=== PATIENT | female | born 1995 | race Caucasian/White ===

== ENCOUNTER → 2016-06-28 | Outpatient (CLI) | payer OTHER ==
--- NOTE | 2016-06-28 14:36 | US ---
EXAMINATION TYPE: US OB <= 14 wk fetus DATE OF EXAM: 06/28/2016 2:08 PM COMPARISON: NONE CLINICAL HISTORY: Z36 Confirm Dates. EXAM PERFORMED: EXAM MEASUREMENTS: GESTATIONAL AGE / DATING Physician Established: not established Dates by LMP: (13 weeks/ 5 days) EDC: 12/29/2016 Dates by First Scan: this is first scan Dates by Current Scan for: (13 weeks/1 days) EDC: 01/02/2017 MATERNAL ANATOMY Uterus: 12.4 x 9.9 x 10.1 cm Right Ovary: 2.1 x 1.4 x 1.9 cm Left Ovary: 2.5 x 1.6 x 2.9 cm Post CDS / Adnexa: wnl Presence of free fluid: none GESTATION / SURVEY CRL: 6.7cm (13 weeks/0 days) Yolk Sac (normal less than 6mm): 0.5 cm Heart Rate: 153 bpm Rhythm: Normal IUP: Viable IUP BPD: 2.0 cm 13 weeks 1 day FL : 1.1 cm 13weeks 1 day Date of LMP: 03/24/2016 TECHNOLOGIST IMPRESSION: viable IUP that correlates with LMP. IMPRESSION: Viable intrauterine gestation with a gestational age of 13 weeks 1 day +/- 7 days. Estimated date con finement based on this examination is 01/02/2017.
== END | disposition home or self-care (01) ==
LOC: RADUSWWP 13:45
PROVIDERS: ATTEND Obstetrics & Gynecology
DX: Z36 Encounter for antenatal screening of mother (principal); Z3A.13 13 weeks gestation of pregnancy
CPT/HCPCS: 76801

== ENCOUNTER → 2016-08-11 | Outpatient (CLI) | payer OTHER ==
--- NOTE | 2016-08-11 12:44 | US ---
EXAMINATION TYPE: US OB anatomy transabd DATE OF EXAM: 08/11/2016 10:16 AM COMPARISON: 06/28/2016 HISTORY: O36.62X0 Large for Dates TECHNIQUE: Transabdominal (TA) EXAM MEASUREMENTS: GESTATIONAL AGE / DATING Physician Established: (20 weeks/0 days) EDC: 12/29/2016 Dates by LMP: 20 weeks 0 days EDC: 12/29/2016 Dates by First Scan: (19 weeks/ 3 days) EDC: 01/02/2017 Dates by Current Scan for: (19 weeks/1 days) EDC: 01/04/2017 SURVEY IUP: Single PLACENTA: Anterior PREVIA: No previa TORREY: 15.8 cm Normal CERVICAL LENGTH (transabdominal: norm > 3.0cm): 3.2 cm BIOMETRY PRESENTATION: Vertex LIE: Oblique BPD: 4.5 cm 19 weeks / 4 days HC: 16.2 cm 19 weeks / 0 days AC: 14.2 cm 19 weeks / 4 days FL: 3.0 cm 19 weeks / 1 days ESTIMATED WEIGHT IN GRAMS: 289 grams ESTIMATED WEIGHT IN LBS/OZS: 0 lbs. 10 oz. WEIGHT PERCENTAGE BASED ON ESTABLISHED DATE: 16 % HC/AC: 1.1 FL/AC: 21 HEART RATE: 142 bpm RHYTHM: Normal ANATOMY SEEN (within normal limits): * Lateral Vent (< 1 cm) 0.6 cm * Cisterna Magna (< 1.1 cm) 0.4 cm * Nuchal Fold (< 0.6 cm) 0.4 cm * Cerebellum (varies with age) 1.9 cm Choroid Plexus (bilateral) Midline Falx Cavus Septi Pellucidi Four Chamber Heart Outflow tracts: LVOT/RVOT Stomach Situs Nose / Lips Diaphragm Kidneys (bilateral) Bladder Cord Insert Three Vessel Cord Longitudinal Spine Transverse Spine Arms (bilateral) Legs (bilateral) IMPRESSION: growth congruent with gestational age.
== END | disposition home or self-care (01) ==
LOC: RADUSWWP 09:21
PROVIDERS: ATTEND Obstetrics & Gynecology
DX: O36.62X0 Maternal care for excessive fetal growth, second trimester, not applicable or unspecified (principal); Z3A.19 19 weeks gestation of pregnancy
CPT/HCPCS: 76811

== ENCOUNTER 2016-09-04 03:05 | Emergency (ER) | payer OTHER ==
[2016-09-04 03:19] VITALS: TEMP 101
--- NOTE | 2016-09-04 03:55 | ED ---
General Adult HPI - General Chief complaint: Fever Stated complaint: fever, neck pain, rash Time Seen by Provider: 09/04/16 03:10 Source: patient, RN notes reviewed Mode of arrival: ambulatory Limitations: no limitations - History of Present Illness Initial comments: This is a 21-year-old female presents to the emergency department 24 weeks . Patient states she woke up today 2 hours ago thought she had a fever complains of a sore throat ear pain and some stiff neck. Patient states she is up-to-date in immunizations. Patient denies getting the flu shot this year. Patient states she took Tylenol prior to coming to the emergency department however she thought there were 200 mg a piece but she does believe they were Tylenol. Patient denies any cough or shortness of breath or chest pain. Patient denies any abdominal pain patient denies nausea vomiting diarrhea. Patient denies dysuria hematuria urinary frequency. Patient denies any vaginal bleeding or discharge. - Related Data Previous Rx's Medication Instructions Recorded Cephalexin [Keflex] 500 mg PO Q6HR #28 cap 09/04/16 Allergies Allergy/AdvReac Type Severity Reaction Status Date / Time No Known Allergies Allergy Verified 09/04/16 03:15 Review of Systems ROS Statement: Those systems with pertinent positive or pertinent negative responses have been documented in the HPI. ROS Other: All systems not noted in ROS Statement are negative. Past Medical History Past Medical History: Asthma History of Any Multi-Drug Resistant Organisms: MRSA Date of last positivie culture/infection: 09/2012 MDRO Source:: resolved/pt declines having Past Surgical History: No Surgical Hx Reported Past Anesthesia/Blood Transfusion Reactions: No Reported Reaction Past Psychological History: No Psychological Hx Reported Smoking Status: Never smoker Past Alcohol Use History: None Reported Past Drug Use History: None Reported - Past Family History Mother Family Medical History: No Reported History General Exam - General Exam Comments Initial Comments: GENERAL: Patient is well-developed and well-nourished. Patient is nontoxic and well- hydrated and is in mild distress. ENT: Neck is soft and supple. No significant lymphadenopathy is noted. Oropharynx is clear. Moist mucous membranes. Neck has full range of motion without eliciting any pain. Patient was able to call at the ceiling always straight down she said it was a little stiff but was able to look left and right and flex left and right when I looked in her ears. EYES: The sclera were anicteric and conjunctiva were pink and moist. Extraocular movements were intact and pupils were equal round and reactive to light. Eyelids were unremarkable. PULMONARY: Unlabored respirations. Good breath sounds bilaterally. No audible rales rhonchi or wheezing was noted. CARDIOVASCULAR: There is a regular rate and rhythm without any murmurs gallops or rubs. ABDOMEN: Soft and nontender with normal bowel sounds. Gravid abdomen SKIN: Skin is clear with no lesions or rashes and otherwise unremarkable. NEUROLOGIC: Patient is alert and oriented x3. Cranial nerves II through XII are grossly intact. Motor and sensory are also intact. Normal speech, volume and content. Symmetrical smile. MUSCULOSKELETAL: Normal extremities with adequate strength and full range of motion. No lower extremity swelling or edema. No calf tenderness. LYMPHATICS: No significant lymphadenopathy is noted PSYCHIATRIC: Normal psychiatric evaluation. Limitations: no limitations Course Vital Signs 09/04/16 03:12 Temperature 101 F H Pulse Rate 99 Respiratory 20 Rate Blood Pressure 124/74 O2 Sat by Pulse 93 L Oximetry Medical Decision Making - Medical Decision Making Patient was able to indicate to the bathroom and I observed her moving her neck from [id number] and up and down with out any distress - Lab Data Lab Results 09/04/16 09/04/16 09/04/16 Range/Units 03:50 03:50 03:50 Urine Color Yellow Urine Appearance Cloudy H (Clear) Urine pH 8.0 (5.0-8.0) Ur Specific [place] 1.016 (1.001-1.035) Urine Protein Trace H (Negative) Urine Glucose (UA) Trace H (Negative) Urine Ketones Negative (Negative) Urine Blood Negative (Negative) Urine Nitrite Negative (Negative) Urine Bilirubin Negative (Negative) Urine Urobilinogen <2.0 (<2.0) mg/dL Ur Leukocyte Esterase Large H (Negative) Urine RBC 3 (0-5) /hpf Urine WBC 25 H (0-5) /hpf Ur Squamous Epith Cells 10 H (0-4) /hpf Urine Bacteria Rare H (None) /hpf Urine Mucus Rare H (None) /hpf Urine Yeast (Budding) Few H (None) /hpf Influenza Type A RNA Not Detected (Not Detectd) Influenza Type B (PCR) Not Detected (Not Detectd) Group A Strep Rapid Negative (Negative) Disposition Clinical Impression: Urinary tract infection Disposition: HOME SELF-CARE Condition: Good Instructions: Urinary Tract Infection in (ED) Prescriptions: Cephalexin [Keflex] 500 mg PO Q6HR #28 cap
[2016-09-04 04:17] LABS: Appearance,Urine Cloudy (Clear); Bacteria,Urine Rare /hpf; Bilirubin,Urine Negative (Negative); Glucose,Urine (UA) Trace (Negative); Ketones,Urine Negative (Negative); Leukocyte Esterase,Urine Large (Negative); Mucus,Urine Rare /hpf; Nitrite,Urine Negative (Negative); Particle Count 26715; Protein,Urine Trace (Negative); RBC,Urine 3 /hpf (0-5); Specific Gravity,Urine 1.016 (1.001-1.035); Squamous Epithelial Cell,Urine 10 /hpf (0-4); UA Billing (MACRO vs. MICRO) MICRO; Urobilinogen,Urine <2.0 mg/dL (<2.0); WBC,Urine 25 /hpf (0-5)
[2016-09-04] MEDS ORDERED: CEPHALEXIN 500MG STARTER PACK 4 CAP BTL PO STA (04:46)
[2016-09-04] MEDS ORDERED: CEPHALEXIN 500 MG CAP PO STA (04:46)
[2016-09-04 04:58] VITALS: BP 115/58; PULSE 92; RESP 18
== END 2016-09-04 04:57 | disposition home or self-care (01) ==
LOC: EC 03:05
DX: O23.42 Unspecified infection of urinary tract in pregnancy, second trimester (principal); O99.89 Other specified diseases and conditions complicating pregnancy, childbirth and the puerperium; O99.512 Diseases of the respiratory system complicating pregnancy, second trimester; M54.2 Cervicalgia; H92.09 Otalgia, unspecified ear; J02.9 Acute pharyngitis, unspecified; Z3A.24 24 weeks gestation of pregnancy
CPT/HCPCS: 81001; 87081; 87086; 87430; 87502; 99283

== ENCOUNTER → 2016-11-08 | Outpatient (CLI) | payer SELFPAY ==
--- NOTE | 2016-11-08 12:23 | US ---
EXAMINATION TYPE: US OB anatomy transabd DATE OF EXAM: 11/08/2016 COMPARISON: HISTORY: O36.63X0 Large for Dates 3rd Trimester LGA TECHNIQUE: Transabdominal (TA) EXAM MEASUREMENTS: GESTATIONAL AGE / DATING Physician Established: (31weeks/6 days) EDC: 01/04/2017 Dates by LMP: UNKNOWN Dates by First Scan: (32WKS 1days) EDC: 01/02/2017 Dates by Current Scan for: (33weeks/5 days) EDC: 12/22/2016 SURVEY IUP: Single PLACENTA: Anterior PREVIA: No previa TORREY: 14.2CMNormal CERVICAL LENGTH (transabdominal: norm > 3.0cm): 3.2CM BIOMETRY PRESENTATION: Breech LIE: Longitudinal BPD: 8.5CM 34weeks / 3 days HC: 29.8CM 33weeks / 0 days AC: 30.8CM 34weeks / 5 days FL: 6.3cm 32wks / 5 days ESTIMATED WEIGHT IN GRAMS: 2325GRAMS ESTIMATED WEIGHT IN LBS/OZS: 5 lbs. 2 oz. WEIGHT PERCENTAGE BASED ON ESTABLISHED DATE: 95% HC/AC: 0.97Normal FL/AC: 20.59NORMAL HEART RATE: 144 RHYTHM: Normal ANATOMY SEEN (within normal limits): Four Chamber Heart Stomach Situs Diaphragm Kidneys (bilateral) Bladder Longitudinal Spine Transverse Spine ANATOMY NOT SEEN: DUE TO AGE AND POSITION * Lateral Vent (< 1 cm) cm * Cisterna Magna (< 1.1 cm) cm * Nuchal Fold (< 0.6 cm) cm * Cerebellum (varies with age) cm Choroid Plexus (bilateral) Midline Falx Cavus Septi Pellucidi Outflow tracts: LVOT/RVOT Nose / Lips Cord Insert Arms (bilateral) Legs (bilateral) Three Vessel Cord IMPRESSION: SINGLE VIABLE IUP 33WKS 5 DAYS WITH VAN OF 12/22/2016
== END | disposition home or self-care (01) ==
LOC: RADUSWWP 11:02
PROVIDERS: ATTEND Obstetrics & Gynecology
DX: O36.63X0 Maternal care for excessive fetal growth, third trimester, not applicable or unspecified (principal); Z3A.33 33 weeks gestation of pregnancy
CPT/HCPCS: 76805

== ENCOUNTER → 2016-11-22 | Outpatient (CLI) | payer SELFPAY ==
[2016-11-22 13:38] LABS: CH 27.1; CHCM 33.2; HCT 30.6 % (34.0-46.0); HDW 3.59; HGB 10.3 gm/dL (11.4-16.0); Hypochromasia Slight; MCH 27.6 pg (25.0-35.0); MCHC 33.7 g/dL (31.0-37.0); MCV 81.9 fL (80.0-100.0); Mean Platelet Volume 9.1; Poikilocytosis Slight; RBC 3.74 m/uL (3.80-5.40); RDW 13.2 % (11.5-15.5); WBC 9.5 k/uL (3.8-10.6)
[2016-11-22 14:05] LABS: Non-African American GFR(MDRD) >60 (>60 ml/min/1.73 sqM)
[2016-11-22 14:31] LABS: Hepatitis B Surface Ag Index 0.05
[2016-11-22 18:59] LABS: Treponemal Ab Non-Reactive (Non-Reactive)
[2016-11-23 05:54] LABS: Toxoplasma Antibody (IgG) <3.0 IU/mL (<7.2)
== END | disposition home or self-care (01) ==
LOC: LABWHC1 12:06
PROVIDERS: ATTEND Obstetrics & Gynecology
DX: Z34.82 Encounter for supervision of other normal pregnancy, second trimester (principal); R53.83 Other fatigue
CPT/HCPCS: 36415; 82565; 82950; 85027; 86762; 86777; 86778; 86780; 86850; 86900; 86901; 87340; 87390

== ENCOUNTER → 2016-11-29 | Outpatient (CLI) | payer SELFPAY ==
[2016-11-29 13:33] LABS: Glucose 3 Hour, Gest 77 mg/dL
== END | disposition home or self-care (01) ==
LOC: LABWHC1 08:29
PROVIDERS: ATTEND Obstetrics & Gynecology
DX: O99.810 Abnormal glucose complicating pregnancy (principal); Z3A.00 Weeks of gestation of pregnancy not specified
CPT/HCPCS: 36415; 82951; 82952

== ENCOUNTER → 2016-12-07 | Outpatient (CLI) | payer SELFPAY ==
--- NOTE | 2016-12-07 15:04 | US ---
EXAMINATION TYPE: US OB >= 14 wk fetus DATE OF EXAM: 12/07/2016 COMPARISON: 11/08/2016 CLINICAL HISTORY: 21-year-old female O36.63X0 LARGE FOR DATES,O32.1XX0 BREECH. Check growth and posit ion. TECHNIQUE: Transabdominal (TA) FINDINGS: GESTATIONAL AGE / DATING Physician Established: (36 weeks/0 days) EDC: 01/04/2017 Dates by Current Scan: (36 weeks/0 days) EDC: 01/04/2017 11/08/2016 ultrasound EDC: 12/22/2016. SURVEY IUP: Single PLACENTA: Anterior PREVIA: No Previa TORREY: 16.7 cm Normal CERVICAL LENGTH (transabdominal: norm > 3.0cm): 3.0 cm BIOMETRY PRESENTATION: Vertex BPD: 8.9 cm 36 weeks / 0 days HC: 31.9 cm 36 weeks / 0 days AC: 34.6 cm 38 weeks / 4 days FL: 7.0 cm 35 weeks / 6 days ESTIMATED WEIGHT IN GRAMS: 3174 grams ESTIMATED WEIGHT IN LBS/OZS: 7 lbs. 0 oz. WEIGHT PERCENTAGE BASED ON ESTABLISHED DATES: 84.3% (versus 95.0% on 11/08/2016) HC/AC: 0.92 (0.93-1.08) FL/AC: 20.2 Normal HEART RATE: 144 bpm RHYTHM: Normal Live single IUP measuring 36 weeks 0 days IMPRESSION: 1. Single live intrauterine with established gestational age of 36 weeks 0 days. Current ul trasound biometry is now exactly concordant placing the child at the 84th percentile for weight (vers us 95% on 11/08/2016). 2. If measurements were accurate on 11/08/2016, there has been 1 weeks 6 days less growth than would b e expected from that time. Continued follow-up recommended especially given slightly low HC/AC ratio now with a disproportionately larger abdominal circumference.
== END | disposition home or self-care (01) ==
LOC: RADUSWWP 10:44
PROVIDERS: ATTEND Obstetrics & Gynecology
DX: O36.63X0 Maternal care for excessive fetal growth, third trimester, not applicable or unspecified (principal); O32.1XX0 Maternal care for breech presentation, not applicable or unspecified; Z3A.36 36 weeks gestation of pregnancy
CPT/HCPCS: 76805

== ENCOUNTER 2016-12-16 13:54 | Outpatient (CLI) | payer SELFPAY ==
[2016-12-16 14:18] VITALS: BP 100/59; PULSE 101; RESP 16; TEMP 96.8
--- NOTE | 2016-12-17 12:06 | P.MSEPDOC ---
Presenting Problems - Arrival Data Date of Arrival on Unit: 12/16/16 Time of Arrival on Unit: 13:54 Mode of Transport: Wheelchair - Complaint OB-Reason for Admission/Chief Complaint: Possible Onset of Labor Medical History - Information : 3 Para: 2 Term: 2 : 0 Abortions: Spontaneous or Elective: 0 Number of Living Children: 2 - Gestational Age Expected Date of Delivery: 01/04/17 Gestational Age by VAN (wks/days): 37 Weeks and 3 Days Review of Systems - Review of Systems Constitutional: No problems Breast: No problems ENT: No problems Cardiovascular: No problems Respiratory: No problems Gastrointestinal: No problems Genitourinary: No problems Musculoskeletal: No problems Neurological: No problems Skin: No problems Vital Signs - Temperature Temperature: 96.8 F Temperature Source: Temporal Artery Scan - Pulse Right Brachial Pulse Rate: 101 Pulse Assessment Method: Automatic Cuff - Respirations Respiratory Rate: 16 Oxygen Delivery Method: Room Air O2 Sat by Pulse Oximetry: 98 - Blood Pressure Right Arm Blood Pressure: 100/59 Blood Pressure Mean: 72 Blood Pressure Source: Automatic Cuff Medical Screen Scoring (Pre) - Cervical Exam Dilation: 1-3 cm = 1 Membranes: Intact - Uterine Contractions Frequency: > 5 minutes apart = 1 Duration: > 40 seconds = 2 Intensity: N/A - Maternal Vital Signs Maternal Temperature: N/A Maternal Blood Pressure: N/A Signs of Preeclampsia: N/A Maternal Respirations: N/A - Maternal Trauma Maternal Trauma: N/A - Assessment Baseline FHR: 125 Heart Rate - NICHD Category: Category I (Normal) = 0 NST: Reactive Position: N/A Station: N/A - Total Score Total Score (Pre): 4 - Level of Risk Level of Risk: Low (0-5) Physician Notification (Pre) - Physician Notified Physician Notified Date: 12/16/16 Physician Notified Time: 15:23 Physician/Practitioner Notifed:: dr santiago Spoke With: dr santiago New Order Received: Yes (ks home) Disposition - Disposition OB Disposition: Discharge to home, Written follow up instructions reviewed Discharge Date: 12/16/16 Discharge Time: 15:30 I agree with the RN Medical Screening Exam: Yes Risk & Benefit of care provided described in d/c instruction: Yes Diagnosis: FALSE LABOR AT OR AFTER 37 COMPLETED WEEKS OF GESTATION
== END 2016-12-16 15:31 | disposition home or self-care (01) ==
LOC: FBPOP 13:54
PROVIDERS: ATTEND Obstetrics & Gynecology
DX: O47.1 False labor at or after 37 completed weeks of gestation (principal); Z3A.37 37 weeks gestation of pregnancy
CPT/HCPCS: 59025; 99213

== ENCOUNTER 2016-12-31 06:00 | Inpatient (IN) | payer OTHER ==
[2016-12-31] MEDS ORDERED: CARBOPROST TROMETHAMINE 250 MCG/ML 1 ML AMP IM PRN (06:36)
[2016-12-31] MEDS ORDERED: OXYTOCIN 10 UNIT/ML 1 ML VIAL IM PRN (06:36)
[2016-12-31] MEDS ORDERED: TERBUTALINE 1 MG/ML VIAL SQ PRN (06:36)
[2016-12-31] MEDS ORDERED: METHYLERGONOVINE 0.2 MG/ML 1 ML AMP IM PRN (06:36)
[2016-12-31] MEDS ORDERED: LIDOCAINE 1% (PF) 10 MG/ML (30 ML SDV) SQ PRN (06:36)
[2016-12-31] MEDS ORDERED: OXYTOCIN 20 UNITS/1000 ML NS 1,000 ML IV SCH (06:45)
[2016-12-31] MEDS: LACTATED RINGERS 1,000 ML IV SCH ×2 (06:48→11:10)
[2016-12-31 06:52] LABS: Basophils # (A) 0.1 k/uL (0-0.2); Basophils % (A) 1 %; CH 24.7; CHCM 32.4; Eosinophils # (A) 0.2 k/uL (0-0.7); Eosinophils % (A) 2 %; HCT 32.3 % (34.0-46.0); HDW 3.76; HGB 10.2 gm/dL (11.4-16.0); Hypochromasia Moderate; Luc # (Auto) 0.19; Luc % (Auto) 2; Lymphocytes # (A) 1.7 k/uL (1.0-4.8); Lymphocytes % (A) 17 %; MCH 24.2 pg (25.0-35.0); MCHC 31.7 g/dL (31.0-37.0); Mean Platelet Volume 8.6; Microcytosis Slight; Monocytes # (A) 0.5 k/uL (0-1.0); Monocytes % (A) 5 %; Neutrophils # (A) 7.3 k/uL (1.3-7.7); Neutrophils % (A) 74 %; Poikilocytosis Slight; RBC 4.23 m/uL (3.80-5.40); RDW 14.8 % (11.5-15.5); WBC 9.9 k/uL (3.8-10.6); WBC (Perox) 10.13
[2016-12-31 06:55] LABS: MCV 76.5 fL (80.0-100.0)
[2016-12-31 07:20] VITALS: BMI 31.7
[2016-12-31] MEDS ORDERED: BUTORPHANOL 1 MG/ML 1 ML VIAL IV PRN (08:50)
[2016-12-31] MEDS ORDERED: fentaNYL (PF) 50 MCG/ML 5 ML AMP ONE (10:53)
[2016-12-31] MEDS ORDERED: SODIUM CHLORIDE 0.9% 100 ML BAG ONE (10:53)
[2016-12-31] MEDS ORDERED: BUPIVACAINE (PF) 0.25% 30 ML VIAL ONE (10:53)
[2016-12-31] MEDS ORDERED: BUPIVACAINE (PF) 0.25% 25 ML, fentaNYL (PF) 200 MCG in SODIUM CHLORIDE 0.9% 71 ML EPIDURAL ONE (11:05)
[2016-12-31] MEDS ORDERED: HYDROCORTISONE 2.5% RECTAL CREAM 30 GM TUBE RECTAL PRN (13:16)
[2016-12-31] MEDS ORDERED: Acetaminophen-Codeine 300-30mg TAB PO PRN ×2 (13:16)
[2016-12-31] MEDS ORDERED: WITCH HAZEL 1 EACH MED..PAD TOPICAL PRN (13:16)
[2016-12-31] MEDS ORDERED: SIMETHICONE 80 MG CHEWABLE PO PRN (13:16)
[2016-12-31] MEDS ORDERED: diphenhydrAMINE 25 MG CAP PO PRN (13:16)
[2016-12-31] MEDS ORDERED: ACETAMINOPHEN TAB 325 MG TAB PO PRN (13:16)
[2016-12-31] MEDS ORDERED: LANOLIN CREAM 5 GM TUBE TOPICAL PRN (13:16)
[2016-12-31] MEDS ORDERED: ZOLPIDEM 5 MG TAB PO PRN (13:16)
[2016-12-31] MEDS ORDERED: diphenhydrAMINE 50 MG CAP PO PRN (13:16)
[2016-12-31] MEDS ORDERED: diphenhydrAMINE 50 MG/ML 1 ML VIAL IVP PRN ×2 (13:16)
[2016-12-31] MEDS ORDERED: BENZOCAINE/MENTHOL SPRAY 1 GM/SPRAY AEROSOL TOPICAL PRN (13:16)
[2016-12-31] MEDS ORDERED: IBUPROFEN 600 MG TAB PO PRN (13:16)
--- NOTE | 2016-12-31 13:20 | P.HPOB ---
History of Present Illness H&P Date: 12/31/16 Chief Complaint: D&C at term: Induction of labor Jerry is a 21-year-old at 39-3/7 weeks gestation who arrives for induction of labor. Her course has been unremarkable and she is feeling well at this time. At presentation she was dilated to ears and artificial rupture membranes has been performed and clear fluid is noted. Pertinent labs did include A+ blood type Rh and blood was negative, rubella nonimmune, hepatitis B surface antigen and group B strep were both negative. On physical exam vital signs are stable and afebrile. Heart regular, lungs clear, extremities without pain. Abdomen soft and nontender gravid uterus is noted. heart tones were in the 130s and reactive. Assessment intrauterine at term. Plan expect spontaneous vaginal delivery she plans to use an epidural for analgesia Past Medical History Past Medical History: Asthma History of Any Multi-Drug Resistant Organisms: MRSA Date of last positivie culture/infection: 09/2012/left shoulder MDRO Source:: resolved/pt declines having/ Past Surgical History: No Surgical Hx Reported Additional Past Surgical History / Comment(s): pt states she had her gallbladder removed 2014 Past Anesthesia/Blood Transfusion Reactions: No Reported Reaction Past Psychological History: No Psychological Hx Reported Smoking Status: Never smoker Past Alcohol Use History: None Reported Past Drug Use History: None Reported - Past Family History Mother Family Medical History: No Reported History Medications and Allergies Home Medications Medication Instructions Recorded Confirmed Type No Known Home Medications [No 12/16/16 12/31/16 History Known Home Medications] Allergies Allergy/AdvReac Type Severity Reaction Status Date / Time No Known Allergies Allergy Verified 12/31/16 06:35 Exam Osteopathic Statement: *. No significant issues noted on an osteopathic structural exam other than those noted in the History and Physical/Consult. - Vital Signs Vital signs: Vital Signs Temp Pulse Resp BP 12/31/16 13:01 98.2 F 90 16 108/64 12/31/16 12:46 77 20 109/64 12/31/16 12:30 80 16 109/57 12/31/16 12:16 77 16 116/61 12/31/16 12:01 76 20 120/58 12/31/16 06:34 98.6 F 82 18 124/63 Intake and Output 12/30/16 12/31/16 12/31/16 22:59 06:59 14:59 Other: Weight 83.915 kg Results Result Diagrams: 12/31/16 06:35 Abnormal Lab Results - Last 24 Hours (Table) 12/31/16 Range/Units 06:35 Hgb 10.2 L (11.4-16.0) gm/dL Hct 32.3 L (34.0-46.0) % MCV 76.5 L D (80.0-100.0) fL MCH 24.2 L (25.0-35.0) pg
--- NOTE | 2016-12-31 13:21 | P.PROBDLV ---
Vaginal Delivery Note - . Vaginal Delivery Note: Rest complete and pushing with spontaneous vaginal delivery of a viable female over intact perineum. Following delivery of the head anterior shoulder was delivered with gentle downward traction followed by the posterior shoulder with gentle upward traction mouth nares were then bulb suctioned and baby was placed on mother's abdomen where the umbilical cord was allowed to pulsate for 30 seconds and then clamped cut usual fashion. Placenta was then delivered intact and Pitocin was added to the IV. scores were 9 and 9 at one and 5 minutes respectively and the weight was 9 lbs. 2 oz. Both mother and baby are stable following delivery.
[2016-12-31] MEDS: SENNOSIDES-DOCUSATE SODIUM 1 EACH TAB PO SCH (20:00)
[2016-12-31] MEDS ORDERED: MEASLES-MUMPS-RUBELLA VACC/PF 12,500 UNIT/0.5 ML VIAL SQ ONE (23:48)
[2017-01-01 00:07] VITALS: RESP 16
[2017-01-01 08:09] VITALS: BP 112/72; PULSE 84; TEMP 98.2
--- NOTE | 2017-01-01 09:16 | P.DS ---
Providers Date of admission: 12/31/16 06:23 Expected date of discharge: 01/01/17 Attending physician: Baljit Baker Primary care physician: Stated None Hospital Course: Patient is seen and evaluated day 1. She is involuting, voiding, and she is tolerating her diet. She voices no complaint. Vital signs are stable and afebrile. Heart regular, lungs clear, extremities without pain. Assessment day 1. Plan discharged home follow up with me in 6 weeks. All questions are answered for her at this time and she is stable for discharge at this time. Patient Condition at Discharge: Good Plan - Discharge Summary New Discharge Prescriptions: No Action No Known Home Medications [No Known Home Medications] Discharge Medication List No Known Home Medications [No Known Home Medications] 12/16/16 [History] Follow up Appointment(s)/Referral(s): Baljit Baker DO [Doctor of Osteopathic Medicine] - 1 Week Activity/Diet/Wound Care/Special Instructions: No heavy lifting, limit stairs and driving, and pelvic rest. If any high temperatures, heavy bleeding, or severe pain call my office Discharge Disposition: HOME SELF-CARE
[2017-01-01] MEDS: SENNOSIDES-DOCUSATE SODIUM 1 EACH TAB PO SCH (10:12)
== END 2017-01-01 12:30 | disposition home or self-care (01) | DRG 775 ==
LOC: 4FBP 06:23
PROVIDERS: ADMIT Obstetrics & Gynecology; ATTEND Obstetrics & Gynecology
PROC: 10E0XZZ Delivery of Products of Conception, External Approach (ICD-10-PCS; principal; 2016-12-31)
PROC: 10907ZC Drainage of Amniotic Fluid, Therapeutic from Products of Conception, Via Natural or Artificial Opening (ICD-10-PCS; 2016-12-31)
PROC: 3E033VJ Introduction of Other Hormone into Peripheral Vein, Percutaneous Approach (ICD-10-PCS; 2016-12-31)
PROC: 3E0S3NZ Introduction of Analgesics, Hypnotics, Sedatives into Epidural Space, Percutaneous Approach (ICD-10-PCS; 2016-12-31)
PROC: 3E0134Z Introduction of Serum, Toxoid and Vaccine into Subcutaneous Tissue, Percutaneous Approach (ICD-10-PCS; 2017-01-01)
DX: O80 Encounter for full-term uncomplicated delivery (principal); Z23 Encounter for immunization; Z37.0 Single live birth; Z3A.39 39 weeks gestation of pregnancy; Z90.49 Acquired absence of other specified parts of digestive tract; Z86.14 Personal history of Methicillin resistant Staphylococcus aureus infection; Z87.09 Personal history of other diseases of the respiratory system
CPT/HCPCS: 85025; 88307; 90471; 90707

== ENCOUNTER 2017-02-13 00:46 | Emergency (ER) | payer OTHER ==
[2017-02-13 01:26] LABS: Anisocytosis Moderate; Basophils % (A) 0 %; CH 25.8; CHCM 32.4; Eosinophils # (A) 0.4 k/uL (0-0.7); Eosinophils % (A) 5 %; HCT 39.5 % (34.0-46.0); HDW 2.77; HGB 12.6 gm/dL (11.4-16.0); Luc # (Auto) 0.16; Luc % (Auto) 2; Lymphocytes # (A) 2.7 k/uL (1.0-4.8); Lymphocytes % (A) 33 %; MCH 25.4 pg (25.0-35.0); MCHC 31.9 g/dL (31.0-37.0); MCV 79.6 fL (80.0-100.0); Mean Platelet Volume 8.3; Microcytosis Slight; Monocytes # (A) 0.5 k/uL (0-1.0); Monocytes % (A) 6 %; Neutrophils # (A) 4.3 k/uL (1.3-7.7); Neutrophils % (A) 53 %; RBC 4.96 m/uL (3.80-5.40); RDW 20.8 % (11.5-15.5); WBC 8.1 k/uL (3.8-10.6); WBC (Perox) 8.23
--- NOTE | 2017-02-13 01:26 | ED ---
Chest Pain HPI - General Chief Complaint: Chest Pain Stated Complaint: chest pain Time Seen by Provider: 02/13/17 01:01 Source: patient Mode of arrival: wheelchair Limitations: no limitations - History of Present Illness Initial Comments: This patient is 21-year-old woman who comes in to be evaluated for intermittent chest pains. Patient states that he's been going on since she had delivered her child in the middle of December. The patient states that she had a normal spontaneous, uncomplicated vaginal delivery. She indicates that the pain is in the substernal area. She states that it tends to come on for couple of hours when it does come. It was severe but now has partially resolved and now is about 4 out of 10. She states that it does feel like it goes towards both sides of her chest. She describes as aching. She has not noted any worsening or relieving factors. When questioned about associated symptoms she does note that she has had a nonproductive cough but that this is been going on since before the pains had started. Patient doesn't have any other associated symptoms. Patient denies vomiting, change in bowel movements, change in urination, leg pain or swelling, history of previous DVT/PE or family history. MD Complaint: chest pain -: week(s) Onset: during rest Pain Location: substernal Pain Radiation: other (Sides) Severity: severe Quality: aching Consistency: other (Partially resolved) Improves With: nothing Worsens With: nothing Other Symptoms: cough Treatments Prior to Arrival: none - Related Data Previous Rx's Medication Instructions Recorded predniSONE 60 mg PO DAILY #30 tab 02/13/17 Allergies Allergy/AdvReac Type Severity Reaction Status Date / Time No Known Allergies Allergy Verified 02/13/17 00:58 Review of Systems ROS Statement: Those systems with pertinent positive or pertinent negative responses have been documented in the HPI. ROS Other: All systems not noted in ROS Statement are negative. Constitutional: Denies: fever, chills Respiratory: Reports: cough. Denies: dyspnea, wheezes, hemoptysis Cardiovascular: Reports: chest pain. Denies: palpitations, orthopnea, edema, syncope Gastrointestinal: Denies: abdominal pain, nausea, vomiting, diarrhea, melena, hematochezia Genitourinary: Denies: dysuria, hematuria Musculoskeletal: Denies: back pain Skin: Denies: rash Neurological: Denies: headache, weakness, numbness EKG Findings - EKG Results: EKG: interpreted by CHERRY, sinus rhythm (Rate approximate 71 bpm), normal axis, normal QRS - Blocks, [place], Hypertrophy, ST Abn: Chamber hypertrophy or enlargement: only voltage criteria for left ventricular hypertrophy Past Medical History Past Medical History: Asthma History of Any Multi-Drug Resistant Organisms: MRSA Date of last positivie culture/infection: 09/2012/left shoulder MDRO Source:: resolved/pt declines having/ Past Surgical History: No Surgical Hx Reported Additional Past Surgical History / Comment(s): pt states she had her gallbladder removed 2014 Past Anesthesia/Blood Transfusion Reactions: No Reported Reaction Past Psychological History: No Psychological Hx Reported Smoking Status: Never smoker Past Alcohol Use History: None Reported Past Drug Use History: None Reported - Past Family History Mother Family Medical History: No Reported History General Exam Limitations: no limitations General appearance: alert, in no apparent distress, other (Frequent nonproductive cough) Head exam: Present: atraumatic, normocephalic Eye exam: Present: normal appearance. Absent: scleral icterus, conjunctival injection ENT exam: Present: normal oropharynx, mucous membranes moist Respiratory exam: Present: normal lung sounds bilaterally. Absent: respiratory distress, wheezes, rales, rhonchi, stridor, chest wall tenderness Cardiovascular Exam: Present: regular rate, normal rhythm, normal heart sounds. Absent: systolic murmur, diastolic murmur, rubs, gallop GI/Abdominal exam: Present: soft. Absent: distended, tenderness, guarding, rebound, mass Extremities exam: Present: normal inspection, normal capillary refill. Absent: pedal edema, calf tenderness Back exam: Present: normal inspection. Absent: CVA tenderness (R), CVA tenderness (L) Neurological exam: Present: alert Skin exam: Present: warm, dry, intact, normal color. Absent: rash Course Vital Signs 02/13/17 02/13/17 00:48 01:23 Temperature 97.7 F Pulse Rate 77 75 Respiratory 16 18 Rate Blood Pressure 135/62 111/68 O2 Sat by Pulse 98 99 Oximetry Disposition Clinical Impression: Bronchitis Disposition: HOME SELF-CARE Condition: Good Instructions: Acute Bronchitis (ED) Prescriptions: predniSONE 60 mg PO DAILY #30 tab Referrals: Nonstaff,Physician [REFERRING] - 1-2 days
[2017-02-13 01:34] LABS: ALT 32 U/L (9-52); AST 18 U/L (14-36); Alkaline Phosphatase 88 U/L (38-126); Anion Gap 13 mmol/L; Blood Urea Nitrogen 19 mg/dL (7-17); Calcium 9.5 mg/dL (8.4-10.2); Carbon Dioxide 19 mmol/L (22-30); Chloride 108 mmol/L (98-107); Glucose 102 mg/dL (74-99); Non-African American GFR(MDRD) >60 (>60 ml/min/1.73 sqM); Potassium 4.3 mmol/L (3.5-5.1); Sodium 140 mmol/L (137-145); Total Bilirubin 1.2 mg/dL (0.2-1.3); Total Protein 7.5 g/dL (6.3-8.2)
[2017-02-13 01:45] LABS: Creatine Kinase 54 U/L (30-135)
[2017-02-13 01:58] LABS: Creatine Kinase MB <0.2 ng/mL (0.0-2.4); Troponin I <0.012 ng/mL (0.000-0.034)
--- NOTE | 2017-02-13 01:58 | XR ---
EXAM: XR Chest, 1 View CLINICAL HISTORY: Reason: chest pain TECHNIQUE: Frontal view of the chest. COMPARISON: No relevant prior studies available. FINDINGS: Lungs: Mild perihilar opacities. No consolidation. Pleural space: Unremarkable. No pneumothorax. Heart: Unremarkable. Mediastinum: Unremarkable. Bones/joints: Unremarkable. IMPRESSION: Mild perihilar opacities. No consolidation.
[2017-02-13] MEDS ORDERED: predniSONE 20 MG TAB PO STA (03:36)
[2017-02-13 03:48] VITALS: BP 154/67; PULSE 70; RESP 16; TEMP 97.5
== END 2017-02-13 03:47 | disposition home or self-care (01) ==
LOC: EC 00:46
DX: J40 Bronchitis, not specified as acute or chronic (principal); R07.89 Other chest pain
CPT/HCPCS: 99285 ×2; 36415; 93005; 85379; 80053; 82550; 82553; 84484; 85025; 71010; J7512

== ENCOUNTER 2018-01-17 22:19 | Emergency (ER) | payer OTHER ==
[2018-01-17 22:29] VITALS: RESP 18
[2018-01-17] MEDS ORDERED: ONDANSETRON 4 MG/2 ML VIAL IVP STA (23:36)
[2018-01-17] MEDS ORDERED: SODIUM CHLORIDE 0.9% 1,000 ML IV STA (23:36)
[2018-01-17] MEDS ORDERED: KETOROLAC 30 MG/ML 1 ML VIAL IVP STA (23:36)
--- NOTE | 2018-01-17 23:39 | ED ---
Abdominal Pain HPI - General Chief Complaint: Abdominal Pain Stated Complaint: poss kidney stones Time Seen by Provider: 01/17/18 23:21 Source: patient Mode of arrival: ambulatory Limitations: no limitations - History of Present Illness Initial Comments: 22-year-old female patient presents to the emergency department today for evaluation of left flank pain. Patient states that she's been having pain on and off for the last 3 days. Patient states that the pain has been present for the last few hours. States it is very sharp and feels orthopedics was punching her in the back. Patient states she is also having some dull achy pain in the right flank. Patient states she did have some hematuria couple days ago. Patient was seen and evaluated at urgent care today and told she possibly has a kidney stone. Patient states her last period was one month ago, her periods are irregular, she is unsure she may be . She denies any nausea, vomiting, constipation, or diarrhea. She denies any dysuria, urinary frequency , urinary urgency. She is having some suprapubic cramping with this. Patient denies any recent rash, shortness breath, chest pain, numbness, tingling, dizziness, weakness, headache, visual changes, or any other complaints. - Related Data Home Medications Medication Instructions Recorded Confirmed No Known Home Medications 01/17/18 01/17/18 Allergies Allergy/AdvReac Type Severity Reaction Status Date / Time No Known Allergies Allergy Verified 01/17/18 23:22 Review of Systems ROS Statement: Those systems with pertinent positive or pertinent negative responses have been documented in the HPI. ROS Other: All systems not noted in ROS Statement are negative. Past Medical History Past Medical History: Asthma History of Any Multi-Drug Resistant Organisms: MRSA Date of last positivie culture/infection: 09/2012/left shoulder MDRO Source:: resolved/pt declines having/ Past Surgical History: Cholecystectomy Additional Past Surgical History / Comment(s): pt states she had her gallbladder removed 2014 Past Anesthesia/Blood Transfusion Reactions: No Reported Reaction Past Psychological History: No Psychological Hx Reported Smoking Status: Never smoker Past Alcohol Use History: None Reported Past Drug Use History: None Reported - Past Family History Mother Family Medical History: No Reported History General Exam Limitations: no limitations General appearance: alert, in no apparent distress, other (This is a well- developed, well-nourished adult female patient in no acute distress. Vital signs upon presentation are temperature 98.2F, pulse 69, respirations 18, blood pressure 106/66, pulse ox 95% on room air.) Eye exam: Present: normal appearance, PERRL, EOMI. Absent: scleral icterus, conjunctival injection, periorbital swelling ENT exam: Present: normal exam, normal oropharynx, mucous membranes moist Respiratory exam: Present: normal lung sounds bilaterally. Absent: respiratory distress, wheezes, rales, rhonchi, stridor Cardiovascular Exam: Present: regular rate, normal rhythm, normal heart sounds. Absent: systolic murmur, diastolic murmur, rubs, gallop, clicks GI/Abdominal exam: Present: soft, tenderness (Suprapubic tenderness), normal bowel sounds. Absent: distended, guarding, rebound, rigid Back exam: Present: normal inspection, CVA tenderness (R), CVA tenderness (L) Neurological exam: Present: alert, oriented X3, CN II-XII intact Psychiatric exam: Present: normal affect, normal mood Skin exam: Present: warm, dry, intact, normal color. Absent: rash Course Vital Signs 01/17/18 22:27 Temperature 98.3 F Pulse Rate 69 Respiratory 18 Rate Blood Pressure 106/66 O2 Sat by Pulse 95 Oximetry Medical Decision Making - Medical Decision Making 22-year-old female patient percents emergency department today for evaluation of bilateral flank pain. Patient is also complaining of some suprapubic cramping. Physical examination did reveal suprapubic tenderness and bilateral CVA tenderness. Labs reviewed and were unremarkable. Urinalysis did show cloudy appearance with 1+ protein, positive nitrite, pulse 1+ bilirubin, moderate leukocyte esterase, 32 white blood cells, 11 squamous epithelial cells , rare amorphous sediment, rare bacteria, many mucus. HCG was negative. We'll treat patient for pyelonephritis. She was seen at urgent care earlier and given a prescription for Bactrim. We'll give her IV Rocephin here in the department and she is instructed to complete that prescription. She is instructed to follow-up with her primary care physician for recheck in 1-2 days. Return parameters discussed in detail. She verbalizes understanding and agrees with this plan. - Lab Data Result diagrams: 01/18/18 00:31 01/18/18 00:31 Lab Results 01/18/18 01/18/1818 Range/Units 00:27 00:27 00:31 WBC (3.8-10.6) k/uL RBC (3.80-5.40) m/uL Hgb (11.4-16.0) gm/dL Hct (34.0-46.0) % MCV (80.0-100.0) fL MCH (25.0-35.0) pg MCHC (31.0-37.0) g/dL RDW (11.5-15.5) % Plt Count (150-450) k/uL Neutrophils % % Lymphocytes % % Monocytes % % Eosinophils % % Basophils % % Neutrophils # (1.3-7.7) k/uL Lymphocytes # (1.0-4.8) k/uL Monocytes # (0-1.0) k/uL Eosinophils # (0-0.7) k/uL Basophils # (0-0.2) k/uL Sodium 141 (137-145) mmol/L Potassium 4.1 (3.5-5.1) mmol/L Chloride 106 (98-107) mmol/L Carbon Dioxide 24 (22-30) mmol/L Anion Gap 11 mmol/L BUN 15 (7-17) mg/dL Creatinine 0.60 (0.52-1.04) mg/dL Est GFR (CKD-EPI)AfAm >90 (>60 ml/min/1.73 sqM) Est GFR (CKD-EPI)NonAf >90 (>60 ml/min/1.73 sqM) Glucose 99 (74-99) mg/dL Calcium 9.5 (8.4-10.2) mg/dL Total Bilirubin 0.7 (0.2-1.3) mg/dL AST 16 (14-36) U/L ALT 24 (9-52) U/L Alkaline Phosphatase 61 (38-126) U/L Total Protein 7.3 (6.3-8.2) g/dL Albumin 4.4 (3.5-5.0) g/dL Amylase 56 (30-110) U/L Lipase 48 (23-300) U/L Urine Color Dark Brown Urine Appearance Cloudy H (Clear) Urine pH 6.0 (5.0-8.0) Ur Specific [place] 1.027 (1.001-1.035) Urine Protein 1+ H (Negative) Urine Glucose (UA) Negative (Negative) Urine Ketones Negative (Negative) Urine Blood Negative (Negative) Urine Nitrite Positive H (Negative) Urine Bilirubin 1+ H (Negative) Urine Urobilinogen 4.0 (<2.0) mg/dL Ur Leukocyte Esterase Moderate H (Negative) Urine RBC 5 (0-5) /hpf Urine WBC 32 H (0-5) /hpf Ur Squamous Epith Cells 11 H (0-4) /hpf Amorphous Sediment Rare H (None) /hpf Urine Bacteria Rare H (None) /hpf Urine Mucus Many H (None) /hpf Urine HCG, Qual Not Detected (Not Detectd) 01/18/18 Range/Units 00:31 WBC 9.8 (3.8-10.6) k/uL RBC 4.33 (3.80-5.40) m/uL Hgb 12.8 (11.4-16.0) gm/dL Hct 39.0 (34.0-46.0) % MCV 89.9 (80.0-100.0) fL MCH 29.6 (25.0-35.0) pg MCHC 32.9 (31.0-37.0) g/dL RDW 12.9 (11.5-15.5) % Plt Count 290 (150-450) k/uL Neutrophils % 57 % Lymphocytes % 31 % Monocytes % 6 % Eosinophils % 4 % Basophils % 1 % Neutrophils # 5.6 (1.3-7.7) k/uL Lymphocytes # 3.0 (1.0-4.8) k/uL Monocytes # 0.6 (0-1.0) k/uL Eosinophils # 0.4 (0-0.7) k/uL Basophils # 0.1 (0-0.2) k/uL Sodium (137-145) mmol/L Potassium (3.5-5.1) mmol/L Chloride (98-107) mmol/L Carbon Dioxide (22-30) mmol/L Anion Gap mmol/L BUN (7-17) mg/dL Creatinine (0.52-1.04) mg/dL Est GFR (CKD-EPI)AfAm (>60 ml/min/1.73 sqM) Est GFR (CKD-EPI)NonAf (>60 ml/min/1.73 sqM) Glucose (74-99) mg/dL Calcium (8.4-10.2) mg/dL Total Bilirubin (0.2-1.3) mg/dL AST (14-36) U/L ALT (9-52) U/L Alkaline Phosphatase (38-126) U/L Total Protein (6.3-8.2) g/dL Albumin (3.5-5.0) g/dL Amylase (30-110) U/L Lipase (23-300) U/L Urine Color Urine Appearance (Clear) Urine pH (5.0-8.0) Ur Specific [place] (1.001-1.035) Urine Protein (Negative) Urine Glucose (UA) (Negative) Urine Ketones (Negative) Urine Blood (Negative) Urine Nitrite (Negative) Urine Bilirubin (Negative) Urine Urobilinogen (<2.0) mg/dL Ur Leukocyte Esterase (Negative) Urine RBC (0-5) /hpf Urine WBC (0-5) /hpf Ur Squamous Epith Cells (0-4) /hpf Amorphous Sediment (None) /hpf Urine Bacteria (None) /hpf Urine Mucus (None) /hpf Urine HCG, Qual (Not Detectd) Disposition Clinical Impression: Pyelonephritis Disposition: HOME SELF-CARE Condition: Good Instructions: Kidney Infection (ED) Additional Instructions: Increase fluids. Complete antibiotic prescription in full. Follow-up with your primary care physician for recheck in 1-2 days. Return here immediately for any new, worsening, or concerning symptoms. Is patient prescribed a controlled substance at d/c from ED?: No Referrals: Juliano Christianson MD [Primary Care Provider] - 1-2 days Time of Disposition: 01:12
[2018-01-18 00:40] LABS: Basophils # (A) 0.1 k/uL (0-0.2); Basophils % (A) 1 %; Eosinophils # (A) 0.4 k/uL (0-0.7); Eosinophils % (A) 4 %; HGB 12.8 gm/dL (11.4-16.0); Lymphocytes % (A) 31 %; MCH 29.6 pg (25.0-35.0); MCHC 32.9 g/dL (31.0-37.0); MCV 89.9 fL (80.0-100.0); Mean Platelet Volume 8.2; Monocytes # (A) 0.6 k/uL (0-1.0); Monocytes % (A) 6 %; Neutrophils # (A) 5.6 k/uL (1.3-7.7); Neutrophils % (A) 57 %; Platelet Count 290 k/uL (150-450); RBC 4.33 m/uL (3.80-5.40); RDW 12.9 % (11.5-15.5); WBC 9.8 k/uL (3.8-10.6)
[2018-01-18 00:53] LABS: ALT 24 U/L (9-52); AST 16 U/L (14-36); Albumin 4.4 g/dL (3.5-5.0); Alkaline Phosphatase 61 U/L (38-126); Amylase 56 U/L (30-110); Anion Gap 11 mmol/L; Blood Urea Nitrogen 15 mg/dL (7-17); Calcium 9.5 mg/dL (8.4-10.2); Carbon Dioxide 24 mmol/L (22-30); Chloride 106 mmol/L (98-107); Glucose 99 mg/dL (74-99); Lipase 48 U/L (23-300); Potassium 4.1 mmol/L (3.5-5.1); Sodium 141 mmol/L (137-145); Total Bilirubin 0.7 mg/dL (0.2-1.3); Total Protein 7.3 g/dL (6.3-8.2)
[2018-01-18 01:05] LABS: Amorphous Sediment,Urine Rare /hpf; Appearance,Urine Cloudy (Clear); Bacteria,Urine Rare /hpf; Bilirubin,Urine 1+ (Negative); Blood,Urine Negative (Negative); Color,Urine Dark Brown; Glucose,Urine (UA) Negative (Negative); Ketones,Urine Negative (Negative); Leukocyte Esterase,Urine Moderate (Negative); Mucus,Urine Many /hpf; Nitrite,Urine Positive (Negative); Protein,Urine 1+ (Negative); RBC,Urine 5 /hpf (0-5); Specific Gravity,Urine 1.027 (1.001-1.035); Squamous Epithelial Cell,Urine 11 /hpf (0-4); WBC,Urine 32 /hpf (0-5)
[2018-01-18] MEDS ORDERED: cefTRIAXone IN SWFI 1,000 MG/10 ML SYRINGE IVP STA (01:10)
[2018-01-18] MEDS ORDERED: MORPHINE SULFATE 2 MG/ML SYRINGE IVP STA (01:14)
[2018-01-18 01:32] VITALS: BP 96/46; PULSE 83; TEMP 97.5
== END 2018-01-18 01:31 | disposition home or self-care (01) ==
LOC: EC 22:19
DX: N12 Tubulo-interstitial nephritis, not specified as acute or chronic (principal); Z86.14 Personal history of Methicillin resistant Staphylococcus aureus infection; Z90.49 Acquired absence of other specified parts of digestive tract
CPT/HCPCS: 36415; 80053; 81001; 81025; 82150; 83690; 85025; 87086; 96361; 96374; 96375; 99284

== ENCOUNTER 2018-03-08 22:11 | Emergency (ER) | payer OTHER ==
[2018-03-08 22:25] VITALS: TEMP 98.3
[2018-03-08 23:20] LABS: Appearance,Urine Cloudy (Clear); Bilirubin,Urine Negative (Negative); Blood,Urine Negative (Negative); Calcium Oxalate Crystals,Urine Many /hpf; Color,Urine Yellow; Glucose,Urine (UA) Negative (Negative); Ketones,Urine Negative (Negative); Leukocyte Esterase,Urine Small (Negative); Mucus,Urine Few /hpf; Nitrite,Urine Negative (Negative); Protein,Urine Trace (Negative); RBC,Urine 3 /hpf (0-5); Specific Gravity,Urine 1.025 (1.001-1.035); Squamous Epithelial Cell,Urine 7 /hpf (0-4); Urobilinogen,Urine <2.0 mg/dL (<2.0); WBC,Urine 8 /hpf (0-5)
--- NOTE | 2018-03-08 23:44 | ED ---
Abdominal Pain HPI - General Chief Complaint: Abdominal Pain Stated Complaint: Abd Pain Time Seen by Provider: 03/08/18 22:58 Source: patient Mode of arrival: ambulatory Limitations: no limitations - History of Present Illness MD Complaint: flank pain -: hour(s) Location: L flank Radiation: LLQ Severity: moderate Quality: aching Consistency: constant Improves With: nothing Worsens With: nothing - Related Data LMP (females 10-50): 1 month Patient : No Home Medications Medication Instructions Recorded Confirmed Ciprofloxacin HCl [Cipro] 500 mg PO BID 03/08/18 03/08/18 Allergies Allergy/AdvReac Type Severity Reaction Status Date / Time No Known Allergies Allergy Verified 03/08/18 22:36 Review of Systems ROS Statement: Those systems with pertinent positive or pertinent negative responses have been documented in the HPI. ROS Other: All systems not noted in ROS Statement are negative. Constitutional: Denies: fever, chills Respiratory: Denies: cough, dyspnea Cardiovascular: Denies: chest pain, palpitations, edema Gastrointestinal: Reports: abdominal pain, diarrhea. Denies: vomiting, constipation, melena, hematochezia Genitourinary: Denies: dysuria, hematuria Musculoskeletal: Denies: back pain Skin: Denies: rash Neurological: Denies: headache, weakness, numbness Past Medical History Past Medical History: Asthma History of Any Multi-Drug Resistant Organisms: MRSA Date of last positivie culture/infection: 09/2012/left shoulder MDRO Source:: resolved/pt declines having/ Past Surgical History: Cholecystectomy Additional Past Surgical History / Comment(s): pt states she had her gallbladder removed 2014 Past Anesthesia/Blood Transfusion Reactions: No Reported Reaction Past Psychological History: No Psychological Hx Reported Smoking Status: Never smoker Past Alcohol Use History: Occasional Past Drug Use History: None Reported - Past Family History Mother Family Medical History: No Reported History General Exam Limitations: no limitations General appearance: alert, in no apparent distress Head exam: Present: atraumatic Eye exam: Present: normal appearance. Absent: scleral icterus, conjunctival injection ENT exam: Present: normal oropharynx Neck exam: Present: normal inspection Respiratory exam: Present: normal lung sounds bilaterally. Absent: respiratory distress, wheezes, rales, rhonchi, stridor Cardiovascular Exam: Present: regular rate, normal rhythm, normal heart sounds. Absent: systolic murmur, diastolic murmur, rubs, gallop GI/Abdominal exam: Present: soft. Absent: distended, tenderness, guarding, rebound, rigid, mass, pulsatile mass, hernia External exam: Present: normal external exam. Absent: erythema, swelling, lesions, ecchymosis Speculum exam: Present: cervical discharge. Absent: vaginal bleeding, foreign body, tissue, laceration By manual exam: Present: cervical motion tenderness, adnexal tenderness. Absent : adnexal mass, uterine enlargement, uterine tenderness Extremities exam: Present: normal inspection, normal capillary refill. Absent: pedal edema, calf tenderness Back exam: Present: normal inspection, paraspinal tenderness. Absent: CVA tenderness (R), vertebral tenderness Neurological exam: Present: alert Skin exam: Present: warm, dry, intact, normal color. Absent: rash Course Vital Signs 03/08/18 22:21 Temperature 98.3 F Pulse Rate 76 Respiratory 20 Rate Blood Pressure 113/73 O2 Sat by Pulse 97 Oximetry Medical Decision Making - Medical Decision Making Discussed indications, risks, and benefits of empiric treatment, and patient does request to have empiric antibiotics. Discussed further care and follow-up as well as return parameters. - Lab Data Result diagrams: 03/09/18 00:10 03/09/18 00:10 Lab Results 03/08/18 03/08/18 03/09/18 Range/Units 22:39 22:39 00:10 WBC (3.8-10.6) k/uL RBC (3.80-5.40) m/uL Hgb (11.4-16.0) gm/dL Hct (34.0-46.0) % MCV (80.0-100.0) fL MCH (25.0-35.0) pg MCHC (31.0-37.0) g/dL RDW (11.5-15.5) % Plt Count (150-450) k/uL Neutrophils % % Lymphocytes % % Monocytes % % Eosinophils % % Basophils % % Neutrophils # (1.3-7.7) k/uL Lymphocytes # (1.0-4.8) k/uL Monocytes # (0-1.0) k/uL Eosinophils # (0-0.7) k/uL Basophils # (0-0.2) k/uL Sodium 141 (137-145) mmol/L Potassium 4.3 (3.5-5.1) mmol/L Chloride 107 (98-107) mmol/L Carbon Dioxide 26 (22-30) mmol/L Anion Gap 8 mmol/L BUN 16 (7-17) mg/dL Creatinine 0.49 L (0.52-1.04) mg/dL Est GFR (CKD-EPI)AfAm >90 (>60 ml/min/1.73 sqM) Est GFR (CKD-EPI)NonAf >90 (>60 ml/min/1.73 sqM) Glucose 111 H (74-99) mg/dL Calcium 9.4 (8.4-10.2) mg/dL Urine Color Yellow Urine Appearance Cloudy H (Clear) Urine pH 6.0 (5.0-8.0) Ur Specific [place] 1.025 (1.001-1.035) Urine Protein Trace H (Negative) Urine Glucose (UA) Negative (Negative) Urine Ketones Negative (Negative) Urine Blood Negative (Negative) Urine Nitrite Negative (Negative) Urine Bilirubin Negative (Negative) Urine Urobilinogen <2.0 (<2.0) mg/dL Ur Leukocyte Esterase Small H (Negative) Urine RBC 3 (0-5) /hpf Urine WBC 8 H (0-5) /hpf Ur Squamous Epith Cells 7 H (0-4) /hpf Calcium Oxalate Crystal Many H (None) /hpf Urine Mucus Few H (None) /hpf Urine HCG, Qual Not Detected (Not Detectd) 03/09/18 Range/Units 00:10 WBC 8.8 (3.8-10.6) k/uL RBC 4.82 (3.80-5.40) m/uL Hgb 13.7 (11.4-16.0) gm/dL Hct 43.0 (34.0-46.0) % MCV 89.3 (80.0-100.0) fL MCH 28.4 (25.0-35.0) pg MCHC 31.8 (31.0-37.0) g/dL RDW 12.7 (11.5-15.5) % Plt Count 320 (150-450) k/uL Neutrophils % 58 % Lymphocytes % 30 % Monocytes % 6 % Eosinophils % 4 % Basophils % 1 % Neutrophils # 5.1 (1.3-7.7) k/uL Lymphocytes # 2.6 (1.0-4.8) k/uL Monocytes # 0.5 (0-1.0) k/uL Eosinophils # 0.4 (0-0.7) k/uL Basophils # 0.0 (0-0.2) k/uL Sodium (137-145) mmol/L Potassium (3.5-5.1) mmol/L Chloride (98-107) mmol/L Carbon Dioxide (22-30) mmol/L Anion Gap mmol/L BUN (7-17) mg/dL Creatinine (0.52-1.04) mg/dL Est GFR (CKD-EPI)AfAm (>60 ml/min/1.73 sqM) Est GFR (CKD-EPI)NonAf (>60 ml/min/1.73 sqM) Glucose (74-99) mg/dL Calcium (8.4-10.2) mg/dL Urine Color Urine Appearance (Clear) Urine pH (5.0-8.0) Ur Specific [place] (1.001-1.035) Urine Protein (Negative) Urine Glucose (UA) (Negative) Urine Ketones (Negative) Urine Blood (Negative) Urine Nitrite (Negative) Urine Bilirubin (Negative) Urine Urobilinogen (<2.0) mg/dL Ur Leukocyte Esterase (Negative) Urine RBC (0-5) /hpf Urine WBC (0-5) /hpf Ur Squamous Epith Cells (0-4) /hpf Calcium Oxalate Crystal (None) /hpf Urine Mucus (None) /hpf Urine HCG, Qual (Not Detectd) Disposition Clinical Impression: Abdominal pain, Cervicitis Disposition: HOME SELF-CARE Condition: Fair Instructions: Cervicitis (ED), Abdominal Pain (ED) Is patient prescribed a controlled substance at d/c from ED?: No Referrals: Juliano Christianson MD [Primary Care Provider] - 1-2 days Kurtis Maguire MD [STAFF PHYSICIAN] - 1-2 days
[2018-03-09 00:18] LABS: Basophils % (A) 1 %; Eosinophils # (A) 0.4 k/uL (0-0.7); Eosinophils % (A) 4 %; HGB 13.7 gm/dL (11.4-16.0); Lymphocytes # (A) 2.6 k/uL (1.0-4.8); Lymphocytes % (A) 30 %; MCH 28.4 pg (25.0-35.0); MCHC 31.8 g/dL (31.0-37.0); MCV 89.3 fL (80.0-100.0); Mean Platelet Volume 7.4; Monocytes # (A) 0.5 k/uL (0-1.0); Monocytes % (A) 6 %; Neutrophils # (A) 5.1 k/uL (1.3-7.7); Neutrophils % (A) 58 %; Platelet Count 320 k/uL (150-450); RBC 4.82 m/uL (3.80-5.40); RDW 12.7 % (11.5-15.5); WBC 8.8 k/uL (3.8-10.6)
[2018-03-09 00:29] LABS: Anion Gap 8 mmol/L; Blood Urea Nitrogen 16 mg/dL (7-17); Calcium 9.4 mg/dL (8.4-10.2); Carbon Dioxide 26 mmol/L (22-30); Chloride 107 mmol/L (98-107); Glucose 111 mg/dL (74-99); Potassium 4.3 mmol/L (3.5-5.1); Sodium 141 mmol/L (137-145)
--- NOTE | 2018-03-09 04:08 | CDI ---
Documentation Clarification OP Dear Aneesh Bruno MD Please do addendum to ED report for MDM, Clinical Impression and Disposition. Thank you, Bernard Navarrete [place] Open[employer] If you have any questions, please contact Film Processing Shift Supervisor at [phone] [facility]
[2018-03-09] MEDS ORDERED: cefTRIAXone 250 MG VIAL IM STA (04:51)
[2018-03-09] MEDS ORDERED: AZITHROMYCIN 250 MG TAB PO STA (04:51)
[2018-03-09 05:12] VITALS: BP 104/70; PULSE 74; RESP 16
[2018-03-10 14:37] LABS: C. trachomatis,PCR Negative (Neg,Equiv); Chlamydia trachomatis Source Vagina
[2018-03-10 14:59] LABS: N. gonorrhoeae,PCR Negative (Neg,Equiv); Neisseria Source Vagina
== END 2018-03-09 05:20 | disposition home or self-care (01) ==
LOC: EC 22:11
DX: N72 Inflammatory disease of cervix uteri (principal); Z86.14 Personal history of Methicillin resistant Staphylococcus aureus infection; Z90.49 Acquired absence of other specified parts of digestive tract
CPT/HCPCS: 36415; 80048; 85025; 81001; 81025; 87491; 87591; 99284; 96372; J0696

== ENCOUNTER → 2018-03-10 | Outpatient (CLI) | payer OTHER ==
--- NOTE | 2018-03-13 07:17 | US ---
EXAMINATION TYPE: US pelvic complete DATE OF EXAM: 03/10/2018 COMPARISON: NONE CLINICAL HISTORY: R10.81 ABDOMINAL TENDERNESS. LLQ pelvic pain x 2 days TECHNIQUE: TA. Transabdominal sonographic images of the pelvis were acquired. Patient insisted her bladder was full and could not hod anymore. I then offered TV approach to supplement images and she d eclined. Date of LMP: Jan 2018 EXAM MEASUREMENTS: Uterus: 8.4 x 5.4 x 4.5 cm Endometrial Stripe: 0.8 cm Right Ovary: 1.9 x 1.8 x 1.4 cm Left Ovary: 3.1 x 2.2 x 3.0 cm 1. Uterus: Anteverted wnl 2. Endometrium: wnl 3. Right Ovary: wnl 4. Left Ovary: 1.9cm cyst seen 5. Bilateral Adnexa: wnl 6. Posterior cul-de-sac: wnl IMPRESSION: 1. Probable functional left ovarian cyst. This can be confirmed with follow-up study in 6 weeks.
== END | disposition home or self-care (01) ==
LOC: RADUSWWP 16:02
PROVIDERS: ATTEND Emergency Medicine
DX: R10.815 Periumbilic abdominal tenderness (principal)
CPT/HCPCS: 76856

== ENCOUNTER 2018-04-27 16:15 | Emergency (ER) | payer OTHER ==
[2018-04-27 16:31] VITALS: BP 102/69; PULSE 86; RESP 18; TEMP 98.5
[2018-04-27 17:53] LABS: Amorphous Sediment,Urine Rare /hpf; Appearance,Urine Cloudy (Clear); Bilirubin,Urine Negative (Negative); Blood,Urine Negative (Negative); Color,Urine Yellow; Glucose,Urine (UA) Negative (Negative); Ketones,Urine Negative (Negative); Leukocyte Esterase,Urine Large (Negative); Mucus,Urine Few /hpf; Nitrite,Urine Negative (Negative); Protein,Urine Trace (Negative); RBC,Urine 2 /hpf (0-5); Specific Gravity,Urine 1.021 (1.001-1.035); Squamous Epithelial Cell,Urine 21 /hpf (0-4); Urobilinogen,Urine <2.0 mg/dL (<2.0); WBC,Urine 31 /hpf (0-5)
--- NOTE | 2018-04-27 18:58 | US ---
EXAMINATION TYPE: Transabdominal DATE OF EXAM: 08/16/17 COMPARISON: NONE CLINICAL HISTORY: Pain. Pain EXAM PERFORMED: Transvaginal (TV) and Transabdominal (TA) EXAM MEASUREMENTS: GESTATIONAL AGE / DATING Physician Established: Not yet established Dates by LMP: LMP unknown Dates by First Scan: No previous this is first scan Dates by Current Scan for: No IUP seen at this time MATERNAL ANATOMY Uterus: 10.9 x 4.6 x 5.8 cm Right Ovary: 2.5 x 1.7 x 1.4 cm Left Ovary: 2.5 x 1.6 x 1.7cm Post CDS / Adnexa: wnl Presence of free fluid: no Presence of corpus luteal cyst: yes Presence of subchorionic bleed: no GESTATION / SURVEY IUP: No IUP seen at this time Beta HcG (if available): Not available at this time Small gestational sac seen. This measures 10 x 3 mm. IMPRESSION: Small intrauterine gestational sac or intrauterine fluid collection. No adnexal mass seen.
--- NOTE | 2018-04-27 19:08 | ED ---
Abdominal Pain HPI - General Chief Complaint: Abdominal Pain Stated Complaint: , ABDOMINAL AND PELVIC PAIN Time Seen by Provider: 04/27/18 17:15 Source: patient, RN notes reviewed, old records reviewed Mode of arrival: ambulatory Limitations: no limitations - History of Present Illness Initial Comments: This is a 23-year-old female the ER for evasive Doppler with nausea. No vomiting. Patient has known . Denies vaginal bleeding or discharge. Denies any fevers, denies any other significant complaints. Patient states the pain is been cramping in nature for the last day and a half. No modifying factors for symptoms MD Complaint: abdominal pain -: hour(s), days(s) Location: suprapubic Radiation: suprapubic Migration to: no migration Severity: mild Severity scale (1-10): 2 Quality: cramping Consistency: intermittent Worsens With: nothing Context: other (Positive ) Associated Symptoms: nausea Treatments Prior to Arrival: other (None) - Related Data Home Medications Medication Instructions Recorded Confirmed No Known Home Medications 04/27/18 04/27/18 Allergies Allergy/AdvReac Type Severity Reaction Status Date / Time No Known Allergies Allergy Verified 04/27/18 17:37 Review of Systems ROS Statement: Those systems with pertinent positive or pertinent negative responses have been documented in the HPI. ROS Other: All systems not noted in ROS Statement are negative. Past Medical History Past Medical History: Asthma History of Any Multi-Drug Resistant Organisms: MRSA Date of last positivie culture/infection: 09/2012/left shoulder MDRO Source:: resolved/pt declines having/ Past Surgical History: Cholecystectomy Additional Past Surgical History / Comment(s): pt states she had her gallbladder removed 2014 Past Anesthesia/Blood Transfusion Reactions: No Reported Reaction Past Psychological History: No Psychological Hx Reported Smoking Status: Never smoker Past Alcohol Use History: Occasional Past Drug Use History: None Reported - Past Family History Mother Family Medical History: No Reported History General Exam Limitations: no limitations General appearance: alert, in no apparent distress Head exam: Present: atraumatic, normocephalic, normal inspection Eye exam: Present: normal appearance, PERRL, EOMI. Absent: scleral icterus, conjunctival injection, periorbital swelling ENT exam: Present: normal exam, mucous membranes moist Neck exam: Present: normal inspection. Absent: tenderness, meningismus, lymphadenopathy Respiratory exam: Present: normal lung sounds bilaterally. Absent: respiratory distress, wheezes, rales, rhonchi, stridor Cardiovascular Exam: Present: regular rate, normal rhythm, normal heart sounds. Absent: systolic murmur, diastolic murmur, rubs, gallop, clicks GI/Abdominal exam: Present: soft, normal bowel sounds. Absent: distended, tenderness, guarding, rebound, rigid Extremities exam: Present: normal inspection, full ROM, normal capillary refill. Absent: tenderness, pedal edema, joint swelling, calf tenderness Back exam: Present: normal inspection Neurological exam: Present: alert, oriented X3, CN II-XII intact Psychiatric exam: Present: normal affect, normal mood Skin exam: Present: warm, dry, intact, normal color. Absent: rash Course Vital Signs 04/27/18 16:29 Temperature 98.5 F Pulse Rate 86 Respiratory 18 Rate Blood Pressure 102/69 O2 Sat by Pulse 98 Oximetry - Reevaluation(s) Reevaluation #1: Medical Record is reviewed Patient spoke at length with regarding findings, patient's questions are answered Medical Decision Making - Medical Decision Making 23-year-old female the ER with abdominal pain and abdominal cramping. Patient is very early in her state, IS NEGATIVE FOR A PE BUT NO SUSPICIOUS FINDINGS FOUND CURRENTLY. PATIENT IS NOT APPEAR EXAM. VITAL SIGNS ARE NORMAL AND STABLE. PATIENT GIVEN URGENT FOLLOW-UP FOR REPEAT BETA-HCG [employer] CONSULTANT REFERRAL. WE DID SPEAK WITH OB REGARDING PATIENT, NOT CONSIDERED FOR IMMEDIATE CAUSE FOR TREATMENT, SECONDARY PATIENT'S LOW BETA-HCG - Lab Data Lab Results 04/27/18 04/27/18 04/27/18 Range/Units 17:30 17:30 19:20 HCG, Quant 1602.1 mIU/mL Urine Color Yellow Urine Appearance Cloudy H (Clear) Urine pH 7.0 (5.0-8.0) Ur Specific [place] 1.021 (1.001-1.035) Urine Protein Trace H (Negative) Urine Glucose (UA) Negative (Negative) Urine Ketones Negative (Negative) Urine Blood Negative (Negative) Urine Nitrite Negative (Negative) Urine Bilirubin Negative (Negative) Urine Urobilinogen <2.0 (<2.0) mg/dL Ur Leukocyte Esterase Large H (Negative) Urine RBC 2 (0-5) /hpf Urine WBC 31 H (0-5) /hpf Ur Squamous Epith Cells 21 H (0-4) /hpf Amorphous Sediment Rare H (None) /hpf Urine Mucus Few H (None) /hpf Urine HCG, Qual Detected (Not Detectd) - Radiology Data Radiology results: report reviewed (Ultrasound negative for IUPis findings), image reviewed Disposition Clinical Impression: Abdominal pain, Abdominal pain affecting Disposition: HOME SELF-CARE Condition: Good Instructions: Abdominal Pain in (ED) Is patient prescribed a controlled substance at d/c from ED?: No Referrals: Tamiko Andre DO [Primary Care Provider] - 1-2 days
== END 2018-04-27 21:12 | disposition home or self-care (01) ==
LOC: EC 16:15
DX: O99.89 Other specified diseases and conditions complicating pregnancy, childbirth and the puerperium (principal); R10.2 Pelvic and perineal pain; R11.0 Nausea; Z86.14 Personal history of Methicillin resistant Staphylococcus aureus infection; Z90.49 Acquired absence of other specified parts of digestive tract; Z3A.00 Weeks of gestation of pregnancy not specified
CPT/HCPCS: 36415; 76801; 76817; 81001; 81025; 84702; 87086; 99284

== ENCOUNTER → 2018-05-01 | Outpatient (CLI) | payer OTHER | END | disposition home or self-care (01) | LOC: LABWHC1 12:01 | PROVIDERS: ATTEND Emergency Medicine | DX: Z34.90 Encounter for supervision of normal pregnancy, unspecified, unspecified trimester (principal) | CPT/HCPCS: 36415; 84702 ==

== ENCOUNTER → 2018-06-05 | Outpatient (CLI) | payer OTHER ==
[2018-06-05 17:10] LABS: HCT 39.6 % (34.0-46.0); HGB 13.1 gm/dL (11.4-16.0); MCH 29.9 pg (25.0-35.0); MCHC 33.1 g/dL (31.0-37.0); MCV 90.4 fL (80.0-100.0); Mean Platelet Volume 7.7; Platelet Count 244 k/uL (150-450); RBC 4.38 m/uL (3.80-5.40); RDW 13.3 % (11.5-15.5); WBC 10.2 k/uL (3.8-10.6)
[2018-06-05 17:30] LABS: Glucose 78 mg/dL (74-99)
--- NOTE | 2018-06-05 23:04 | US ---
EXAMINATION TYPE: Transabdominal DATE OF EXAM: 08/16/17 COMPARISON: US 04/27/2018 CLINICAL HISTORY: Z36 CONFIRM DATES. EXAM PERFORMED: Transabdominal (TA) EXAM MEASUREMENTS: GESTATIONAL AGE / DATING Physician Established: Not yet established Dates by LMP: LMP unknown Dates by First Scan: No IUP visualized Dates by Current Scan for: (10 weeks/4 days) EDC: 12/28/2018 MATERNAL ANATOMY Uterus: 11.4 x 8.2 x 8.9 cm Right Ovary: 2.5 x 1.7 x 1.9 cm Left Ovary: 3.1 x 1.5 x 2.6 cm Post CDS / Adnexa: wnl Presence of free fluid: No Presence of corpus luteal cyst: No Presence of subchorionic bleed: Yes, to the left of the gestational sac measuring 4.3 x 3.0 x 4.3 cm GESTATION / SURVEY CRL: 3.7 cm (10 weeks/4 days) Yolk Sac (normal less than 6mm): 4 mm Heart Rate: 178 bpm Rhythm: Upper limits of normal IUP: Viable IUP Date of LMP: LMP unsure Beta HcG (if available): Not available at this time Single live intrauterine gestation is not confirmed as gestational sac, yolk sac, and pole are now identified. No free fluid is seen in pelvic cul-de-sac. 2 left of the gestational sac there is mo derate size fluid collection could reflect implantation bleed or subchorionic hemorrhage. Both ovaries are seen. No suspicious extraovarian adnexal lesions are present. IMPRESSION: Confirmation of single live intrauterine gestation, mean crown-rump length is 3.7 cm corresponding to 10 week 4 day old fetus on current study.
== END ==
LOC: RADUSWWP 15:28
PROVIDERS: ATTEND Obstetrics & Gynecology
DX: Z36.89 Encounter for other specified antenatal screening (principal); Z34.80 Encounter for supervision of other normal pregnancy, unspecified trimester; Z3A.10 10 weeks gestation of pregnancy
CPT/HCPCS: 36415; 76801; 82565; 82947; 85027; 86762; 86780; 86850; 86900; 86901; 87340

== ENCOUNTER 2018-12-13 15:55 | Outpatient (CLI) | payer OTHER ==
[2018-12-13 16:52] LABS: Total Bilirubin 1.1 mg/dL (0.2-1.3)
[2018-12-13 17:32] VITALS: BP 127/67; RESP 18
--- NOTE | 2018-12-13 17:36 | P.PN ---
Progress Note - Text Progress Note Date: 12/13/18 Gestation was seen and evaluated again in labor and delivery. Labs were reviewed. Liver enzymes are normal as's bilirubin. A bile salts is still pending and will take several days. We'll plan to continue twice weekly NSTs for potential of cholestasis of , however at this time I have no definitive proof that this is cholestasis. Symptoms have only been present for approximately 5 days when itching began it began sort of diffusely it may have started near her hands and now it is predominantly around her lower abdomen close to stretch damon. also difficult to say that is pupps. There is no true rash noted anywhere. As precaution will at least try her on Kenalog cream for the next day or 2 and see if she gets any relief, if there is no relief may switch to Actigall or discuss simply moving forward for delivery for suspected cholestasis of . All questions were answered for her and again and nonstress test is reactive and she is otherwise feeling well.
[2018-12-13 20:09] VITALS: PULSE 79; TEMP 97.3
== END 2018-12-13 17:30 | disposition home or self-care (01) ==
LOC: FBPOP 15:55
PROVIDERS: ATTEND Obstetrics & Gynecology
DX: O26.893 Other specified pregnancy related conditions, third trimester (principal); Z3A.37 37 weeks gestation of pregnancy
CPT/HCPCS: 59025; 82239; 82247; 84450; 84460

== ENCOUNTER 2018-12-22 06:24 | Inpatient (IN) | payer OTHER ==
[2018-12-22] MEDS ORDERED: OXYTOCIN 10 UNIT/ML 1 ML VIAL IM PRN (06:35)
[2018-12-22] MEDS ORDERED: CARBOPROST TROMETHAMINE 250 MCG/ML 1 ML AMP IM PRN (06:35)
[2018-12-22] MEDS ORDERED: METHYLERGONOVINE 0.2 MG/ML 1 ML AMP IM PRN (06:35)
[2018-12-22] MEDS ORDERED: LIDOCAINE 0.5% (PF) 5 MG/ML (50 ML SDV) SQ PRN (06:35)
[2018-12-22] MEDS ORDERED: TERBUTALINE 1 MG/ML VIAL SQ PRN (06:35)
[2018-12-22] MEDS ORDERED: OXYTOCIN 30 UNITS/500 ML NS 30 UNIT in SALINE 1 500ML.BAG IV SCH (06:45)
[2018-12-22 06:49] LABS: Anisocytosis Slight; Basophils # (A) 0.1 k/uL (0-0.2); Basophils % (A) 1 %; Eosinophils # (A) 0.3 k/uL (0-0.7); Eosinophils % (A) 3 %; HCT 33.3 % (34.0-46.0); HGB 10.9 gm/dL (11.4-16.0); Hypochromasia Slight; Lymphocytes % (A) 21 %; MCH 24.9 pg (25.0-35.0); MCHC 32.8 g/dL (31.0-37.0); MCV 75.9 fL (80.0-100.0); Mean Platelet Volume 8.7; Microcytosis Slight; Monocytes # (A) 0.6 k/uL (0-1.0); Monocytes % (A) 6 %; Neutrophils # (A) 6.5 k/uL (1.3-7.7); Neutrophils % (A) 68 %; Platelet Count 273 k/uL (150-450); Poikilocytosis Slight; RBC 4.39 m/uL (3.80-5.40); WBC 9.6 k/uL (3.8-10.6)
[2018-12-22] MEDS: LACTATED RINGERS 1,000 ML IV SCH ×2 (06:51→09:59)
[2018-12-22] MEDS ORDERED: AMPICILLIN 2,000 MG in SODIUM CHLORIDE 0.9% 100 ML IVPB ONE (07:00)
[2018-12-22 07:16] VITALS: BMI 37.0
[2018-12-22] MEDS ORDERED: fentaNYL (PF) 50 MCG/ML 5 ML AMP ONE (09:45)
[2018-12-22] MEDS ORDERED: ROPIVACAINE 5MG/ML 20ML VIAL ONE (09:45)
[2018-12-22] MEDS ORDERED: SODIUM CHLORIDE 0.9% 100 ML BAG ONE (09:45)
[2018-12-22] MEDS ORDERED: AMPICILLIN 1,000 MG in SODIUM CHLORIDE 0.9% 50 ML IVPB SCH (11:00)
[2018-12-22] MEDS ORDERED: OXYTOCIN 20 UNITS/1000 ML NS 1,000 ML IV SCH ×2 (13:00→13:15)
[2018-12-22] MEDS ORDERED: BENZOCAINE/MENTHOL SPRAY 1 GM/SPRAY AEROSOL TOPICAL PRN (13:14)
[2018-12-22] MEDS ORDERED: ACETAMINOPHEN TAB 325 MG TAB PO PRN (13:14)
[2018-12-22] MEDS ORDERED: LANOLIN CREAM 5 GM TUBE TOPICAL PRN (13:14)
[2018-12-22] MEDS ORDERED: WITCH HAZEL 1 EACH MED..PAD TOPICAL PRN (13:14)
[2018-12-22] MEDS ORDERED: diphenhydrAMINE 50 MG CAP PO PRN (13:14)
[2018-12-22] MEDS ORDERED: ZOLPIDEM 5 MG TAB PO PRN (13:14)
[2018-12-22] MEDS ORDERED: SIMETHICONE 80 MG CHEWABLE PO PRN (13:14)
[2018-12-22] MEDS ORDERED: HYDROCORTISONE 2.5% RECTAL CREAM 30 GM TUBE RECTAL PRN (13:14)
[2018-12-22] MEDS ORDERED: diphenhydrAMINE 50 MG/ML 1 ML VIAL IVP PRN ×2 (13:14)
[2018-12-22] MEDS ORDERED: diphenhydrAMINE 25 MG CAP PO PRN (13:14)
--- NOTE | 2018-12-22 13:16 | P.HPOB ---
History of Present Illness H&P Date: 12/22/18 Chief Complaint: Intrauterine at term: Induction of labor Patient is a 23-year-old at 39 weeks gestation arise for induction of labor. Her Precis course has been, complicated by itching over the last few weeks of the , however placenta collapse of been normal. Otherwise was well and she voices no complaints at this time. Vital signs are stable and afebrile. Heart regular, lungs clear, extremities without pain. Abdomen soft nontender. Positive bowel sounds are noted. Gravid uterus is noted. Category 1 tracing is noted. She was dilated to a 3 and a half centimeters artificial rupture membranes was performed clear fluid is noted. Pertinent labs do include A+ blood type Rh antibody negative, rubella was immune, hepatitis B surface antigen was negative however group B strep was positive. Assessment intrauterine term. Plan expect spontaneous vaginal delivery and she anticipates use of an epidural for analgesia. Past Medical History Past Medical History: Asthma History of Any Multi-Drug Resistant Organisms: MRSA Date of last positivie culture/infection: 09/2012/left shoulder MDRO Source:: resolved/pt declines having/ Past Surgical History: Cholecystectomy Additional Past Surgical History / Comment(s): pt states she had her gallbladder removed 2014 Past Anesthesia/Blood Transfusion Reactions: No Reported Reaction Past Psychological History: No Psychological Hx Reported Smoking Status: Never smoker Past Alcohol Use History: Occasional Past Drug Use History: None Reported - Past Family History Mother Family Medical History: No Reported History Medications and Allergies Home Medications Medication Instructions Recorded Confirmed Type Pedi Multivit No.25/Folic Acid 2 tab PO DAILY 12/22/18 12/22/18 History [Flintstones Multivit Chew Tab] Allergies Allergy/AdvReac Type Severity Reaction Status Date / Time No Known Allergies Allergy Verified 04/27/18 17:37 Exam Osteopathic Statement: *. No significant issues noted on an osteopathic structural exam other than those noted in the History and Physical/Consult. Vital Signs Temp Pulse Resp BP 12/22/18 06:32 98 F 87 15 121/69 Intake and Output 12/21/18 12/22/18 12/22/18 22:59 06:59 14:59 Other: Weight 97.976 kg Results Result Diagrams: 12/22/18 06:40 Abnormal Lab Results - Last 24 Hours (Table) 08/09/19 Range/Units 06:40 Hgb 10.9 L (11.4-16.0) gm/dL Hct 33.3 L (34.0-46.0) % MCV 75.9 L (80.0-100.0) fL MCH 24.9 L (25.0-35.0) pg RDW 17.0 H (11.5-15.5) %
--- NOTE | 2018-12-22 13:19 | P.PROBDLV ---
Vaginal Delivery Note - . Vaginal Delivery Note: Patient progressed complete and pushed with spontaneous vaginal delivery of a viable female over intact perineum. Falling deliver the head anterior posterior shoulders were delivered gentle downward upper traction followed by the remainder the baby. Mouth and nares were then bulb suctioned and baby was placed on mother's abdomen where the umbilical cord was allowed to pulsate for 30 seconds prior to clamping cutting. Once this was accomplished placenta was then delivered intact and Pitocin was added to the IV. scores were 9 and 9 at one and 5 minutes respectively and weight was 8 lbs. 2 oz. Both mother and baby are stable findings delivery.
[2018-12-23] MEDS: IBUPROFEN 600 MG TAB PO PRN ×2 (01:08→07:27)
[2018-12-23 07:51] VITALS: RESP 18
[2018-12-23] MEDS: SENNOSIDES-DOCUSATE SODIUM 1 EACH TAB PO SCH ×2 (08:14→08:15)
--- NOTE | 2018-12-23 11:28 | P.DS ---
Providers Date of admission: 12/22/18 06:24 Expected date of discharge: 12/23/18 Attending physician: Baljit Baker Primary care physician: Stated None Hospital Course: Just is doing very well post day 1. She is involuting, voiding and tolerating her diet. She voices no complaints. Vital signs are stable and afebrile. Heart regular, lungs clear, extremities without pain. Abdomen soft uterus is firm and lochia is reported light. Prescription for Motrin was 40 to her pharmacy. All the questions are answered for her prior to discharge. She is stable for discharge this time. Patient Condition at Discharge: Good Plan - Discharge Summary New Discharge Prescriptions: New Ibuprofen [Motrin] 600 mg PO Q6HR PRN #30 tab PRN Reason: Pain No Action Pedi Multivit No.25/Folic Acid [Flintstones Multivit Chew Tab] 2 tab PO DAILY Discharge Medication List Pedi Multivit No.25/Folic Acid [Flintstones Multivit Chew Tab] 2 tab PO DAILY 12/22/18 [History] Ibuprofen [Motrin] 600 mg PO Q6HR PRN #30 tab 12/23/18 [Rx] Follow up Appointment(s)/Referral(s): Baljit Baker DO [Doctor of Osteopathic Medicine] - 1 Week Activity/Diet/Wound Care/Special Instructions: No heavy lifting, limit stairs and driving, and pelvic rest. If any high temperatures, heavy bleeding, or severe pain call my office Discharge Disposition: HOME SELF-CARE
[2018-12-23 14:07] VITALS: BP 112/67; PULSE 62; TEMP 97.5
== END 2018-12-23 14:29 | disposition home or self-care (01) | DRG 807 ==
LOC: 4FBP 06:24
PROVIDERS: ADMIT Obstetrics & Gynecology; ATTEND Obstetrics & Gynecology
PROC: 10E0XZZ Delivery of Products of Conception, External Approach (ICD-10-PCS; principal; 2018-12-22)
PROC: 00HU33Z Insertion of Infusion Device into Spinal Canal, Percutaneous Approach (ICD-10-PCS; 2018-12-22)
PROC: 3E0R3BZ Introduction of Anesthetic Agent into Spinal Canal, Percutaneous Approach (ICD-10-PCS; 2018-12-22)
PROC: 10907ZC Drainage of Amniotic Fluid, Therapeutic from Products of Conception, Via Natural or Artificial Opening (ICD-10-PCS; 2018-12-22)
DX: O99.824 Streptococcus B carrier state complicating childbirth (principal); Z37.0 Single live birth; O99.52 Diseases of the respiratory system complicating childbirth; J45.909 Unspecified asthma, uncomplicated; Z3A.39 39 weeks gestation of pregnancy; Z90.49 Acquired absence of other specified parts of digestive tract; Z86.14 Personal history of Methicillin resistant Staphylococcus aureus infection
CPT/HCPCS: 85025; 86850; 86900; 86901

== ENCOUNTER 2020-04-15 06:00 | Inpatient (IN) | payer OTHER ==
[2020-04-17] MEDS ORDERED: LIDOCAINE 0.5% (PF) 5 MG/ML (50 ML SDV) SQ PRN (06:20)
[2020-04-17] MEDS ORDERED: METHYLERGONOVINE 0.2 MG/ML 1 ML AMP IM PRN (06:20)
[2020-04-17] MEDS ORDERED: CARBOPROST TROMETHAMINE 250 MCG/ML 1 ML AMP IM PRN (06:20)
[2020-04-17] MEDS ORDERED: TERBUTALINE 1 MG/ML VIAL SQ PRN (06:20)
[2020-04-17] MEDS ORDERED: OXYTOCIN 10 UNIT/ML 1 ML VIAL IM PRN (06:20)
[2020-04-17 06:25] LABS: Glucose,Whole Blood 85 mg/dL (75-99)
[2020-04-17] MEDS ORDERED: AMPICILLIN 2,000 MG in SODIUM CHLORIDE 0.9% 100 ML IVPB STA (06:26)
[2020-04-17] MEDS ORDERED: OXYTOCIN 30 UNITS/500 ML NS 30 UNIT in SALINE 1 500ML.BAG IV SCH (06:30)
[2020-04-17 06:37] LABS: Basophils # (A) 0.1 k/uL (0-0.2); Basophils % (A) 1 %; Eosinophils # (A) 0.2 k/uL (0-0.7); Eosinophils % (A) 3 %; HCT 32.2 % (34.0-46.0); HGB 10.9 gm/dL (11.4-16.0); Lymphocytes % (A) 23 %; MCH 26.1 pg (25.0-35.0); MCHC 33.8 g/dL (31.0-37.0); MCV 77.2 fL (80.0-100.0); Mean Platelet Volume 8.3; Monocytes # (A) 0.4 k/uL (0-1.0); Monocytes % (A) 5 %; Neutrophils # (A) 5.8 k/uL (1.3-7.7); Neutrophils % (A) 66 %; Platelet Count 249 k/uL (150-450); RBC 4.18 m/uL (3.80-5.40); WBC 8.7 k/uL (3.8-10.6)
[2020-04-17] MEDS: LACTATED RINGERS 1,000 ML IV SCH ×2 (06:42→12:23)
[2020-04-17] MEDS ORDERED: AMPICILLIN 1,000 MG in SODIUM CHLORIDE 0.9% 50 ML IVPB SCH (10:30)
[2020-04-17] MEDS ORDERED: fentaNYL (PF) 50 MCG/ML 5 ML AMP ONE (12:04)
[2020-04-17] MEDS ORDERED: SODIUM CHLORIDE 0.9% 100 ML BAG ONE (12:04)
[2020-04-17] MEDS ORDERED: ROPIVACAINE 5MG/ML 20ML VIAL ONE (12:04)
[2020-04-17] MEDS ORDERED: ROPIVACAINE 100 MG, fentaNYL (PF) 200 MCG in SODIUM CHLORIDE 0.9% 76 ML EPIDURAL ONE (12:24)
[2020-04-17] MEDS ORDERED: BENZOCAINE/MENTHOL SPRAY 1 GM/SPRAY AEROSOL TOPICAL PRN (13:37)
[2020-04-17] MEDS ORDERED: ZOLPIDEM 5 MG TAB PO PRN (13:37)
[2020-04-17] MEDS ORDERED: diphenhydrAMINE 50 MG/ML 1 ML VIAL IVP PRN ×2 (13:37)
[2020-04-17] MEDS ORDERED: IBUPROFEN 600 MG TAB PO PRN (13:37)
[2020-04-17] MEDS ORDERED: LANOLIN CREAM 5 GM TUBE TOPICAL PRN (13:37)
[2020-04-17] MEDS ORDERED: diphenhydrAMINE 25 MG CAP PO PRN (13:37)
[2020-04-17] MEDS ORDERED: HYDROCORTISONE 2.5% RECTAL CREAM 30 GM TUBE RECTAL PRN (13:37)
[2020-04-17] MEDS ORDERED: SIMETHICONE 80 MG CHEWABLE PO PRN (13:37)
[2020-04-17] MEDS ORDERED: diphenhydrAMINE 50 MG CAP PO PRN (13:37)
--- NOTE | 2020-04-17 13:40 | P.HPOB ---
History of Present Illness H&P Date: 04/17/20 Chief Complaint: Uterine at term Glenys is a 25-year-old at 39 weeks gestation arise for induction of labor. Her Precis course has been, K by gestational diabetes for which she was a 1 not requiring insulin and chlamydia once he was normal throughout the pr egnancy. Also complicating the was a social issue with her mom being in the ICU and recently passing away. A category 1 tracing is been noted this morning and she is dilated to 47 m 80% effaced and -3 station. Artificial rupture membranes was performed and clear fluid is noted. Plan for Pitocin augmentation of labor. She is artery receive 2 doses of antibiotics for history of group B strep positive and she plans to use epidural for analgesia. Past Medical History Past Medical History: Asthma History of Any Multi-Drug Resistant Organisms: MRSA Date of last positivie culture/infection: 09/2012/left shoulder MDRO Source:: resolved/pt declines having/ Past Surgical History: Cholecystectomy Additional Past Surgical History / Comment(s): pt states she had her gallbladder removed 2014 Past Anesthesia/Blood Transfusion Reactions: No Reported Reaction Past Psychological History: No Psychological Hx Reported Smoking Status: Former smoker Past Alcohol Use History: Occasional Past Drug Use History: None Reported - Past Family History Mother Family Medical History: Asthma, Diabetes Mellitus, Thyroid Disorder Medications and Allergies Home Medications Medication Instructions Recorded Confirmed Type Pedi Multivit No.25/Folic Acid 2 tab PO DAILY 12/22/18 04/17/20 History [Flintstones Multivit Chew Tab] Allergies Allergy/AdvReac Type Severity Reaction Status Date / Time No Known Allergies Allergy Verified 04/17/20 09:52 Exam Osteopathic Statement: *. No significant issues noted on an osteopathic s tructural exam other than those noted in the History and Physical/Consult. Vital Signs Temp Pulse Resp BP 04/17/20 07:12 97.0 F L 76 20 129/67 Intake and Output 04/16/20 04/17/20 04/17/20 22:59 06:59 14:59 Intake Total 1000 Balance 1000 Intake: IV 1000 Invasive Line 1 1000 Other: Weight 96.162 kg 96.162 kg - OBG Physical Exam Breast: both: normal (no masses) Abdomen: bowel sounds normal, no diffuse tenderness, no bruit present, no guarding noted, no hepatomegaly, no splenomegaly, no mass Vulva: both: normal Vagina: normal moisture, no discharge Cervix: no lesion, no discharge Uterus: normal size, normal contour Adnexa: both: normal Anus/Rectum: normal perianal skin, no rectal mass, no hemorrhoids, heme negative Results Result Diagrams: 04/17/20 06:30 Abnormal Lab Results - Last 24 Hours (Table) 04/17/20 Range/Units 06:30 Hgb 10.9 L (11.4-16.0) gm/dL Hct 32.2 L (34.0-46.0) % MCV 77.2 L (80.0-100.0) fL
--- NOTE | 2020-04-17 13:41 | P.PROBDLV ---
Vaginal Delivery Note - . Vaginal Delivery Note: Patient progressed to complete and pushing with spontaneous vaginal delivery of a viable male over an intact perineum. Following delivery of the head anterior posterior shoulders were easily delivered with gentle downward upper traction baby was noted to be in right occiput anterior position. Once baby was fully delivered mouth nares were bulb suctioned and baby was placed mother's abdomen where the umbilical cord was clamped and cut in usual fashion following 30 seconds of cord pulsation. Pressure personnel was present and assumed care. Placenta was then delivered intact Pitocin was added to the IV. scores are 9 and 9 at one and 5 minutes respectively. Weight is pending. Mother and baby both appear stable following delivery.
[2020-04-17] MEDS ORDERED: OXYTOCIN 20 UNITS/1000 ML NS 1,000 ML IV SCH (13:45)
[2020-04-17 15:57] LABS: Hemoglobin A1C 5.1 % (4.0-6.0)
[2020-04-17] MEDS ORDERED: SENNOSIDES-DOCUSATE SODIUM 1 EACH TAB PO SCH (20:00)
[2020-04-17] MEDS: ACETAMINOPHEN TAB 325 MG TAB PO PRN (21:50)
[2020-04-18 02:21] VITALS: PULSE 95; RESP 16; TEMP 98.3
[2020-04-18] MEDS: LACTATED RINGERS 1,000 ML IV SCH (02:26)
[2020-04-18] MEDS: ACETAMINOPHEN TAB 325 MG TAB PO PRN (05:40)
[2020-04-18 08:27] VITALS: BP 95/59
--- NOTE | 2020-04-18 11:39 | P.DS ---
Providers Date of admission: 04/17/20 06:04 Expected date of discharge: 04/18/20 Attending physician: Baljit Baker Primary care physician: Stated None Hospital Course: Patient is doing very well day 1. She is ambulating, voiding, and tolerating her diet. She voices no complaints and requests discharged to home today. Vital signs are stable and afebrile. Heart regular, lungs clear, extremities without pain. Abdomen soft uterus is firm and lochia is reported light. Assessment day 1. Plan discharged home follow me in 6 weeks. Discharge instructions were reviewed and a prescription for Motrin has been referred to the pharmacy. She is stable for discharge this time. Patient Condition at Discharge: Good Plan - Discharge Summary New Discharge Prescriptions: New Ibuprofen [Motrin] 600 mg PO Q6HR PRN #30 tab PRN Reason: Pain No Action Pedi Multivit No.25/Folic Acid [Flintstones Multivit Chew Tab] 2 tab PO DAILY Discharge Medication List Pedi Multivit No.25/Folic Acid [Flintstones Multivit Chew Tab] 2 tab PO DAILY 12/22/18 [History] Ibuprofen [Motrin] 600 mg PO Q6HR PRN #30 tab 04/18/20 [Rx] Follow up Appointment(s)/Referral(s): Baljit Baker DO [Doctor of Osteopathic Medicine] - 6 Weeks Activity/Diet/Wound Care/Special Instructions: Be lifting, limit stairs and driving, and pelvic rest if any high temperatures, heavy bleeding or severe pain call my office Discharge Disposition: HOME SELF-CARE
== END 2020-04-18 14:45 | disposition home or self-care (01) | DRG 807 ==
LOC: 4FBP 04-17 06:04
PROVIDERS: ADMIT Obstetrics & Gynecology; ATTEND Obstetrics & Gynecology
PROC: 10907ZC Drainage of Amniotic Fluid, Therapeutic from Products of Conception, Via Natural or Artificial Opening (ICD-10-PCS; principal; 2020-04-17)
PROC: 3E033VJ Introduction of Other Hormone into Peripheral Vein, Percutaneous Approach (ICD-10-PCS; principal; 2020-04-17)
PROC: 10E0XZZ Delivery of Products of Conception, External Approach (ICD-10-PCS; principal; 2020-04-17)
PROC: 00HU33Z Insertion of Infusion Device into Spinal Canal, Percutaneous Approach (ICD-10-PCS; principal; 2020-04-17)
PROC: 3E0R3BZ Introduction of Anesthetic Agent into Spinal Canal, Percutaneous Approach (ICD-10-PCS; principal; 2020-04-17)
DX: O99.52 Diseases of the respiratory system complicating childbirth (principal); Z37.0 Single live birth; J45.909 Unspecified asthma, uncomplicated; Z3A.39 39 weeks gestation of pregnancy; Z79.899 Other long term (current) drug therapy; Z87.891 Personal history of nicotine dependence; Z86.14 Personal history of Methicillin resistant Staphylococcus aureus infection; Z90.49 Acquired absence of other specified parts of digestive tract; Z87.19 Personal history of other diseases of the digestive system; Z98.890 Other specified postprocedural states; Z83.3 Family history of diabetes mellitus; Z82.5 Family history of asthma and other chronic lower respiratory diseases; Z83.49 Family history of other endocrine, nutritional and metabolic diseases
CPT/HCPCS: 83036; 85025; 86850; 86900; 86901

== ENCOUNTER 2020-08-02 20:36 | Emergency (ER) | payer OTHER ==
[2020-08-02 20:45] VITALS: BP 125/71; PULSE 86; RESP 19
[2020-08-02 21:16] LABS: Appearance,Urine Clear (Clear); Bilirubin,Urine Negative (Negative); Blood,Urine Negative (Negative); Color,Urine Light Yellow; Glucose,Urine (UA) Negative (Negative); Ketones,Urine Negative (Negative); Leukocyte Esterase,Urine Negative (Negative); Nitrite,Urine Negative (Negative); Protein,Urine Negative (Negative); Urobilinogen,Urine <2.0 mg/dL (<2.0)
[2020-08-02 21:32] VITALS: TEMP 99.3
--- NOTE | 2020-08-02 21:52 | XR ---
EXAMINATION TYPE: XR chest 2V DATE OF EXAM: 08/02/2020 COMPARISON: 02/13/2017 HISTORY: Cough TECHNIQUE: FINDINGS: Heart and mediastinum are normal. Lungs are clear. Diaphragm is normal. Bony thorax appears normal. IMPRESSION: Normal chest. No change.
[2020-08-02] MEDS ORDERED: ACETAMINOPHEN TAB 325 MG TAB PO STA (21:59)
--- NOTE | 2020-08-02 22:00 | ED ---
General Adult HPI - General Chief complaint: Fever Stated complaint: Fever,Cough,Body Aches Time Seen by Provider: 08/02/20 20:48 Source: patient Mode of arrival: ambulatory - History of Present Illness Initial comments: 25-year-old feel presents today for chief complaint of body aches fever cough. Patient states that she has had bodyaches fever cough and low back pain 2 days. Patient states that she is not sure if she is a urinary tract infection or what is causing these symptoms. Patient states she feels slightly short of breath she denies any chest pain. Denies = diarrhea, vomiting. Admits to nausea. Patient denies lost of taste smell. Patient has no additional complaints. Upon arrival she appears well nontoxic in no acute distress. - Related Data Home Medications Medication Instructions Recorded Confirmed Pedi Multivit No.25/Folic Acid 2 tab PO DAILY 12/22/18 04/17/20 [Flintstones Multivit Chew Tab] Previous Rx's Medication Instructions Recorded Ibuprofen [Motrin] 600 mg PO Q6HR PRN #30 tab 04/18/20 Allergies Allergy/AdvReac Type Severity Reaction Status Date / Time ibuprofen [From Motrin] Allergy Rash/Hives Verified 08/02/20 20:45 Review of Systems ROS Statement: Those systems with pertinent positive or pertinent negative responses have been documented in the HPI. ROS Other: All systems not noted in ROS Statement are negative. Past Medical History Past Medical History: Asthma History of Any Multi-Drug Resistant Organisms: MRSA Date of last positivie culture/infection: 09/2012/left shoulder MDRO Source:: resolved/pt declines having/ Past Surgical History: Cholecystectomy Additional Past Surgical History / Comment(s): pt states she had her gallbladder removed 2014 Past Anesthesia/Blood Transfusion Reactions: No Reported Reaction Past Psychological History: No Psychological Hx Reported Smoking Status: Former smoker Past Alcohol Use History: Occasional Past Drug Use History: None Reported - Past Family History Mother Family Medical History: Asthma, Diabetes Mellitus, Thyroid Disorder General Exam - General Exam Comments Initial Comments: General: The patient is awake and alert, in no distress, and does not appear acutely ill. Eye: Pupils are equal, round and reactive to light, extra-ocular movements are intact. No nystagmus. There is normal conjunctiva bilaterally. No signs of icterus. . Cardiovascular: There is a regular rate and rhythm. No murmur, rub or gallop is appreciated. Respiratory: Lungs are clear to auscultation, respirations are non-labored, breath sounds are equal. No wheezes, stridor, rales, or rhonchi. Gastrointestinal: Soft, non-distended, non-tender abdomen without masses or organomegaly noted. There is no rebound or guarding present. No CVA tenderness. Musculoskeletal: Normal ROM, no tenderness. Strength 5/5. Sensation intact. Pulses equal bilaterally 2+. Neurological: A&O x 3. CN II-XII intact grossly, There are no obvious motor or sensory deficits. Coordination appears grossly intact. Speech is normal. Skin: Skin is warm and dry and no rashes or lesions are noted. Psychiatric: Cooperative, appropriate mood & affect, normal judgment. Course Vital Signs 08/02/20 08/02/20 20:42 21:32 Temperature 100 F H 99.3 F Pulse Rate 86 Respiratory 19 Rate Blood Pressure 125/71 O2 Sat by Pulse 98 Oximetry Medical Decision Making - Medical Decision Making Covid +. CXR clear. No distress. VS stable. Lesa denies PMH aside from an asthma that she states has "resolved" she states she doesnt even use her rescue inhaler anymore. Return parameters and recommendation applying at home pulse oximeter to monitor oxygenation was discussed the patient verbalizes lavelle sagastume. Patient was discharged appearing well. Attending Dr. Main - Lab Data Lab Results 08/02/20 08/02/20 08/02/20 Range/Units 20:59 20:59 20:59 Urine Color Light Yellow Urine Appearance Clear (Clear) Urine pH 6.0 (5.0-8.0) Ur Specific [place] 1.020 (1.001-1.035) Urine Protein Negative (Negative) Urine Glucose (UA) Negative (Negative) Urine Ketones Negative (Negative) Urine Blood Negative (Negative) Urine Nitrite Negative (Negative) Urine Bilirubin Negative (Negative) Urine Urobilinogen <2.0 (<2.0) mg/dL Ur Leukocyte Esterase Negative (Negative) Urine HCG, Qual Not Detected (Not Detectd) Coronavirus (PCR) Detected A (Not Detectd) Disposition Clinical Impression: COVID-19, Fever, Body aches, Cough Disposition: HOME SELF-CARE Condition: Good Instructions (If sedation given, give patient instructions): Coronavirus Disease 2019 (COVID-19), Fever in Adults (ED) Additional Instructions: Please use medication as discussed. Please follow-up with family doctor in the next 2 days. Please return to emergency room if the symptoms increase or worsen or for any other concerns. Is patient prescribed a controlled substance at d/c from ED?: No Referrals: None,Stated [Primary Care Provider] - 1-2 days Time of Disposition: 22:00
== END 2020-08-02 22:13 | disposition home or self-care (01) ==
LOC: EC 20:36
DX: U07.1 COVID-19 (principal); Z87.891 Personal history of nicotine dependence; J45.909 Unspecified asthma, uncomplicated
CPT/HCPCS: 71046; 81003; 81025; 87635; 99283

== ENCOUNTER 2020-09-17 22:05 | Emergency (ER) | payer OTHER ==
[2020-09-17 22:11] VITALS: PULSE 71; RESP 18
[2020-09-17] MEDS ORDERED: LORazepam 1 MG TAB PO STA (22:19)
--- NOTE | 2020-09-17 22:20 | ED ---
Anxiety HPI - General Chief Complaint: Neuro Symptoms/Deficit Stated Complaint: Dizziness,Nausea Time Seen by Provider: 09/17/20 22:12 Source: patient, RN notes reviewed, old records reviewed Mode of arrival: ambulatory - History of Present Illness Initial Comments: This is a 25-year-old female DF for evaluation patient Dese for evaluation regards to a general not feeling well numbness dizziness tingling extremity tingling and does admit to some increased anxiety as of late. Maybe a possibility of . Otherwise no headache nausea vomiting chest pain shortness of breath. No recent diarrhea. No abdominal pain. MD Complaint: anxiety -: hour(s) Symptoms: extremity numbness/tingling, perioral numbness/tingling Place: home Previous History of Same: No Severity: mild Quality: intermittent Provoking factors: emotional stress Improves With: nothing Worsens With: nothing Associated symptoms: palpitations - Related Data Home Medications: Home Medications Medication Instructions Recorded Confirmed Cholecalciferol [Vitamin D3 (25 25 mcg PO DAILY 09/17/20 09/17/20 Mcg = 1000 Iu)] Allergies/Adverse Reactions: Allergies Allergy/AdvReac Type Severity Reaction Status Date / Time ibuprofen [From Motrin] Allergy Rash/Hives Verified 09/17/20 22:58 Review of Systems ROS Statement: Those systems with pertinent positive or pertinent negative responses have been documented in the HPI. ROS Other: All systems not noted in ROS Statement are negative. Past Medical History Past Medical History: Asthma History of Any Multi-Drug Resistant Organisms: MRSA Date of last positivie culture/infection: 09/2012/left shoulder MDRO Source:: resolved/pt declines having/ Past Surgical History: Cholecystectomy Additional Past Surgical History / Comment(s): pt states she had her gallbladder removed 2014 Past Anesthesia/Blood Transfusion Reactions: No Reported Reaction Past Psychological History: No Psychological Hx Reported Smoking Status: Former smoker Past Alcohol Use History: Occasional Past Drug Use History: None Reported - Past Family History Mother Family Medical History: Asthma, Diabetes Mellitus, Thyroid Disorder General Exam Limitations: no limitations General appearance: alert, in no apparent distress Head exam: Present: atraumatic, normocephalic, normal inspection Eye exam: Present: normal appearance, PERRL, EOMI. Absent: scleral icterus, conjunctival injection, periorbital swelling ENT exam: Present: normal exam, mucous membranes moist Neck exam: Present: normal inspection. Absent: tenderness, meningismus, lymp hadenopathy Respiratory exam: Present: normal lung sounds bilaterally. Absent: respiratory distress, wheezes, rales, rhonchi, stridor Cardiovascular Exam: Present: regular rate, normal rhythm, normal heart sounds. Absent: systolic murmur, diastolic murmur, rubs, gallop, clicks GI/Abdominal exam: Present: soft, normal bowel sounds. Absent: distended, tenderness, guarding, rebound, rigid Extremities exam: Present: normal inspection, full ROM, normal capillary refill. Absent: tenderness, pedal edema, joint swelling, calf tenderness Back exam: Present: normal inspection Neurological exam: Present: alert, oriented X3, CN II-XII intact Psychiatric exam: Present: normal affect, normal mood Skin exam: Present: warm, dry, intact, normal color. Absent: rash Course Vital Signs 09/17/20 09/17/20 09/18/20 22:07 23:27 00:00 Temperature 98.1 F 98.4 F Pulse Rate 71 71 71 Respiratory 18 18 18 Rate Blood Pressure 125/73 129/69 113/67 O2 Sat by Pulse 99 98 98 Oximetry - Reevaluation(s) Reevaluation #1: Medical record is reviewed Patient symptoms significantly improved here in the ER Patient informed of results and questions have been answered Medical Decision Making - Medical Decision Making 25 female for likely anxiety attack. Symptoms otherwise negative, testing is otherwise negative here in the ER patient can be discharged home - Lab Data Result diagrams: 09/18/20 00:01 09/18/20 00:01 Lab Results 09/18/20 09/18/20 09/18/20 Range/Units 00:01 00:01 00:01 WBC 12.4 H (3.8-10.6) k/uL RBC 4.42 (3.80-5.40) m/uL Hgb 12.4 (11.4-16.0) gm/dL Hct 36.4 (34.0-46.0) % MCV 82.4 (80.0-100.0) fL MCH 28.0 (25.0-35.0) pg MCHC 34.0 (31.0-37.0) g/dL RDW 14.6 (11.5-15.5) % Plt Count 326 (150-450) k/uL MPV 8.1 Neutrophils % 65 % Lymphocytes % 27 % Monocytes % 5 % Eosinophils % 2 % Basophils % 0 % Neutrophils # 8.1 H (1.3-7.7) k/uL Lymphocytes # 3.4 (1.0-4.8) k/uL Monocytes # 0.6 (0-1.0) k/uL Eosinophils # 0.2 (0-0.7) k/uL Basophils # 0.1 (0-0.2) k/uL Sodium 141 (137-145) mmol/L Potassium 4.0 (3.5-5.1) mmol/L Chloride 104 (98-107) mmol/L Carbon Dioxide 27 (22-30) mmol/L Anion Gap 10 mmol/L BUN 18 H (7-17) mg/dL Creatinine 0.58 (0.52-1.04) mg/dL Est GFR (CKD-EPI)AfAm >90 (>60 ml/min/1.73 sqM) Est GFR (CKD-EPI)NonAf >90 (>60 ml/min/1.73 sqM) Glucose 99 (74-99) mg/dL Calcium 9.0 (8.4-10.2) mg/dL Phosphorus 4.0 (2.5-4.5) mg/dL Magnesium 2.2 (1.6-2.3) mg/dL Total Bilirubin 0.8 (0.2-1.3) mg/dL AST 25 (14-36) U/L ALT 16 (4-34) U/L Alkaline Phosphatase 73 (38-126) U/L Creatine Kinase 41 (30-135) U/L Total Protein 7.0 (6.3-8.2) g/dL Albumin 4.0 (3.5-5.0) g/dL Urine Color Urine Appearance (Clear) Urine pH (5.0-8.0) Ur Specific [place] (1.001-1.035) Urine Protein (Negative) Urine Glucose (UA) (Negative) Urine Ketones (Negative) Urine Blood (Negative) Urine Nitrite (Negative) Urine Bilirubin (Negative) Urine Urobilinogen (<2.0) mg/dL Ur Leukocyte Esterase (Negative) Urine HCG, Qual Not Detected (Not Detectd) 09/18/20 Range/Units 00:01 WBC (3.8-10.6) k/uL RBC (3.80-5.40) m/uL Hgb (11.4-16.0) gm/dL Hct (34.0-46.0) % MCV (80.0-100.0) fL MCH (25.0-35.0) pg MCHC (31.0-37.0) g/dL RDW (11.5-15.5) % Plt Count (150-450) k/uL MPV Neutrophils % % Lymphocytes % % Monocytes % % Eosinophils % % Basophils % % Neutrophils # (1.3-7.7) k/uL Lymphocytes # (1.0-4.8) k/uL Monocytes # (0-1.0) k/uL Eosinophils # (0-0.7) k/uL Basophils # (0-0.2) k/uL Sodium (137-145) mmol/L Potassium (3.5-5.1) mmol/L Chloride (98-107) mmol/L Carbon Dioxide (22-30) mmol/L Anion Gap mmol/L BUN (7-17) mg/dL Creatinine (0.52-1.04) mg/dL Est GFR (CKD-EPI)AfAm (>60 ml/min/1.73 sqM) Est GFR (CKD-EPI)NonAf (>60 ml/min/1.73 sqM) Glucose (74-99) mg/dL Calcium (8.4-10.2) mg/dL Phosphorus (2.5-4.5) mg/dL Magnesium (1.6-2.3) mg/dL Total Bilirubin (0.2-1.3) mg/dL AST (14-36) U/L ALT (4-34) U/L Alkaline Phosphatase (38-126) U/L Creatine Kinase (30-135) U/L Total Protein (6.3-8.2) g/dL Albumin (3.5-5.0) g/dL Urine Color Light Yellow Urine Appearance Clear (Clear) Urine pH 6.5 (5.0-8.0) Ur Specific [place] 1.013 (1.001-1.035) Urine Protein Negative (Negative) Urine Glucose (UA) Negative (Negative) Urine Ketones Negative (Negative) Urine Blood Negative (Negative) Urine Nitrite Negative (Negative) Urine Bilirubin Negative (Negative) Urine Urobilinogen <2.0 (<2.0) mg/dL Ur Leukocyte Esterase Negative (Negative) Urine HCG, Qual (Not Detectd) - EKG Data -: EKG Interpreted by Me (EKG shows sinus rhythm 67 LA 120 QRS 88 QTc 454) Disposition Clinical Impression: Anxiety Disposition: HOME SELF-CARE Condition: Good Instructions (If sedation given, give patient instructions): Anxiety (ED) Is patient prescribed a controlled substance at d/c from ED?: No Referrals: Tamiko Andre DO [Primary Care Provider] - 1-2 days
[2020-09-17 23:31] VITALS: TEMP 98.4
[2020-09-17] MEDS ORDERED: ONDANSETRON 4 MG/2 ML VIAL IVP STA (23:56)
[2020-09-17] MEDS ORDERED: SODIUM CHLORIDE 0.9% 1,000 ML IV STA (23:56)
[2020-09-18 00:12] LABS: Appearance,Urine Clear (Clear); Bilirubin,Urine Negative (Negative); Blood,Urine Negative (Negative); Color,Urine Light Yellow; Glucose,Urine (UA) Negative (Negative); Ketones,Urine Negative (Negative); Leukocyte Esterase,Urine Negative (Negative); Nitrite,Urine Negative (Negative); PH, Urine 6.5 (5.0-8.0); Protein,Urine Negative (Negative); Specific Gravity,Urine 1.013 (1.001-1.035); Urobilinogen,Urine <2.0 mg/dL (<2.0)
[2020-09-18 00:16] VITALS: BP 113/67
[2020-09-18 00:16] LABS: Basophils # (A) 0.1 k/uL (0-0.2); Basophils % (A) 0 %; Eosinophils # (A) 0.2 k/uL (0-0.7); Eosinophils % (A) 2 %; HCT 36.4 % (34.0-46.0); HGB 12.4 gm/dL (11.4-16.0); Lymphocytes # (A) 3.4 k/uL (1.0-4.8); Lymphocytes % (A) 27 %; MCV 82.4 fL (80.0-100.0); Mean Platelet Volume 8.1; Monocytes # (A) 0.6 k/uL (0-1.0); Monocytes % (A) 5 %; Neutrophils # (A) 8.1 k/uL (1.3-7.7); Neutrophils % (A) 65 %; Platelet Count 326 k/uL (150-450); RBC 4.42 m/uL (3.80-5.40); RDW 14.6 % (11.5-15.5); WBC 12.4 k/uL (3.8-10.6)
[2020-09-18 00:26] LABS: ALT 16 U/L (4-34); AST 25 U/L (14-36); African American GFR (CKD) >90 (>60 ml/min/1.73 sqM); Alkaline Phosphatase 73 U/L (38-126); Anion Gap 10 mmol/L; Blood Urea Nitrogen 18 mg/dL (7-17); Carbon Dioxide 27 mmol/L (22-30); Chloride 104 mmol/L (98-107); Creatine Kinase 41 U/L (30-135); Glucose 99 mg/dL (74-99); Magnesium 2.2 mg/dL (1.6-2.3); Non-African American GFR(CKD) >90 (>60 ml/min/1.73 sqM); Sodium 141 mmol/L (137-145); Total Bilirubin 0.8 mg/dL (0.2-1.3)
== END 2020-09-18 00:36 | disposition home or self-care (01) ==
LOC: EC 22:05
DX: F41.9 Anxiety disorder, unspecified (principal); J45.909 Unspecified asthma, uncomplicated; Z90.49 Acquired absence of other specified parts of digestive tract; Z87.891 Personal history of nicotine dependence
CPT/HCPCS: 36415; 80053; 81003; 81025; 82550; 83735; 84100; 85025; 93005; 99283

== ENCOUNTER → 2020-11-26 | Outpatient (CLI) | payer OTHER ==
--- NOTE | 2020-11-27 04:32 | MR ---
EXAMINATION TYPE: MR knee RT wo con DATE OF EXAM: 11/26/2020 COMPARISON: None HISTORY: Right lateral knee pain x 2 yrs, no trauma. Multiplanar multiecho imaging of the right knee was performed without contrast. The anterior and posterior cruciate ligaments are intact. There is minimal knee joint effusion. The c ollateral ligaments appear intact. Medial and lateral menisci appear intact. There is no evidence of a fracture. I see no bony destructi ve process. Patella is intact. IMPRESSION: There is a small knee joint effusion. Otherwise negative exam. No evidence of ligament or meniscal t ear.
== END | disposition home or self-care (01) ==
LOC: RADMRIMAIN 19:13
PROVIDERS: ATTEND Orthopaedic Surgery
DX: M25.461 Effusion, right knee (principal)